=== PATIENT | male | born 1945 | race Caucasian/White ===

== ENCOUNTER 2025-03-18 15:27 | Inpatient (IN) | payer OTHER, MEDICARE, SELFPAY ==
[2025-03-18] VITALS (8 sets, daily range): BP systolic 81–116; BP diastolic 50–64; BMI 22.0; BMI 19.6
[2025-03-18] MEDS: NSS 500 IV (12:29)
[2025-03-18 12:43] LABS: Hematocrit 26.5 % (39.0-52.0); Hemoglobin 9.1 g/dL (13.0-18.0); Mean Corp Hgb Conc. 34.3 g/dL (33.0-37.0); Mean Corpuscular Volume 94.6 fL (80.0-94.0); Nucleated Red Blood Cells % 0 % (-); Platelet Count 116 10^3/uL (130-400); Red Cell Dist. Width 17.8 % (11.5-14.5)
[2025-03-18 13:01] LABS: COVID-19 Antigen Negative (Negative)
[2025-03-18 13:10] LABS: ALT (SGPT) 18 U/L (0-50); AST (SGOT) 18 U/L (17-59); Albumin 3.3 g/dl (3.5-5.0); Alkaline Phosphatase 43 U/L (38-126); Blood Urea Nitrogen 15 mg/dl (9-20); Calcium 9.9 mg/dl (8.4-10.2); Carbon Dioxide 32 mmol/L (22-30); Chloride 97 mmol/L (98-107); Estimated Creatinine Clearance 66 ml/min; Glucose 215 mg/dl (70-99); Magnesium 1.4 mg/dl (1.6-2.3); Potassium 4.3 mmol/L (3.5-5.1); Sodium 132 mmol/L (135-145); Total Protein 5.4 g/dl (6.3-8.2); eGFR > 60.00
[2025-03-18 13:22] LABS: Troponin I < 0.012 ng/ml
[2025-03-18] MEDS: ZOSYN 50 IV (14:42)
--- NOTE | 2025-03-18 14:50 | ED.GENMED ---
History of Present Illness
General
Chief Complaint: Breathing Problem
Source: patient and spouse
Time Seen by Provider: 03/18/25 12:05
History of Present Illness
History of Present Illness:
Note:
CHIEF COMPLAINT(S)
Chest pain and cough.
HISTORY OF PRESENT ILLNESS
The patient is an 79-year-old male with a history of multiple myeloma and chronic obstructive pulmonary disease (COPD) who presents with worsening chest pain and cough. The patient states that the symptoms have been present since January 06 and have
progressively worsened over the past three weeks. The chest pain is deep and affects both the left and right sides, worsening with deep breaths and coughing. The cough is occasionally productive, but not consistently. The patient denies fever at the
time of the visit but reported a low-grade fever earlier, attributing it to wearing a hoodie. The patient is concerned about potential RSV or pneumonia.
The patient is on home oxygen at two liters per minute due to COPD. Recent blood pressure is lower than usual, attributed to dehydration. The patient has a history of a stroke five years ago and is on anticoagulation therapy. He also has concerns
related to potential microfractures due to multiple myeloma, as suggested by an oncologist in the past.
PAST MEDICAL AND SURGICAL HISTORY
- Multiple myeloma: Underwent CAR-T cell therapy in September and is currently in complete remission. 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
- Chronic obstructive pulmonary disease (COPD).
- History of stroke five years ago, with complete recovery.
- History of various treatment protocols for multiple myeloma before CAR-T therapy.
EXTERNAL RECORDS REVIEWED
The patient mentioned recent hospitalization in [place], where multiple tests were run due to his symptoms. Obtaining old records from this facility has been suggested for further comparison.
CHRONIC MEDICAL CONDITIONS SIGNIFICANTLY AFFECTING CARE
- Multiple myeloma.
- Chronic obstructive pulmonary disease (COPD).
- History of stroke.
ALLERGIES
The patient reports anaphylactic shock to myelogic fibaloxin and hives from pomalidomide.
SOCIAL HISTORY
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
MEDICATIONS
The patient is on anticoagulation therapy, taking 2.5 mg twice daily.
REVIEW OF SYSTEMS
- Cardiovascular: Reports chest pain, worsening over the past three weeks, associated with deep breathing and coughing.
- Respiratory: Reports cough, occasionally productive. Home oxygen use at two liters due to COPD.
- Constitutional: Reports no recent fever but had a low-grade one earlier.
PHYSICAL EXAM
General: Alert, no acute distress.
Cardiovascular: Heart, regular and tachycardic. Blood pressure recorded as low, systolic in the 80s.
Respiratory: Lungs with good air movement with scattered occasional crackles.
Gastrointestinal : Abdomen soft, no distension.
Musculoskeletal: No lower extremity edema noted.
PROBLEM LIST
Acute Problems:
- Chest pain
- Cough
- Low blood pressure
Chronic Problems:
- Multiple myeloma
- Chronic obstructive pulmonary disease (COPD)
- History of stroke
PLAN
1. Perform a chest X-ray to assess for pneumonia, lung collapse, or pulmonary embolism.
2. Consider a CT scan of the chest if X-ray is inconclusive.
3. Administer fluids for dehydration to address low blood pressure.
4. Evaluate cardiac and respiratory function closely due to vital sign instability.
5. Consider hospital admission for observation and management overnight due to low systolic blood pressure and tachycardia.
6. Obtain previous medical records from the recent hospitalization for comparison.
DIFFERENTIAL DIAGNOSIS
The Differential Diagnosis includes, in no particular order and is not limited to:
1. Pneumonia
2. Respiratory syncytial virus (RSV) infection
3. Pulmonary embolism
4. Pleural effusion
5. Chronic obstructive pulmonary disease exacerbation
6. Heart failure
7. Lung malignancy or metastasis
8. Atypical chest pain related to multiple myeloma or treatment
9. Costochondritis
10. Dehydration-related hypotension
EKG
My independent EKG interpretation is:
- Rhythm: Sinus tachycardia
- Heart rate: 113 bpm
- Jones: Normal
- Intervals: Normal
- Notable abnormalities: Poor R-wave progression
- Additional findings: No acute changes
Disposition:
SUMMARY OF ENCOUNTER
The patient is an 79-year-old male with a history of chronic obstructive pulmonary disease (COPD) and multiple myeloma, presenting with worsening chest pain and cough. Laboratory evaluations show leukopenia with a WBC count of 3.5, hemoglobin at
9.1, and platelets at 116, indicating pancytopenia. The blood glucose level is elevated at 215 mg/dL. A chest x-ray suggests pneumonia in the right lung, while a CT scan of the chest has been ordered to rule out pulmonary embolism. The patient�s
troponin levels are negative, and creatinine is normal. Management in the ED includes normalization of blood pressure and heart rate, IV fluids for hydration, and withholding vancomycin due to allergies. The patient reports feeling better upon
reassessment.
ASSESSMENT
- Suspected pneumonia
- Pancytopenia
- Hyperglycemia
- Chronic obstructive pulmonary disease exacerbation
PLAN
A CT scan of the chest is pending to further evaluate the condition and rule out pulmonary embolism. IV fluids are being administered for dehydration.
INDEPENDENT REVIEW OF LABS AND INTERPRETATION OF TESTS
My independent review of CBC is leukopenia with WBC 3.5, hemoglobin at 9.1, and platelets at 116 indicating pancytopenia.
My independent review of blood glucose indicates an elevated level at 215 mg/dL.
My independent review of chemistries shows normal creatinine levels and negative troponin.
My independent chest x-ray interpretation indicates suspicion for pneumonia with opacities in the right lung.
MEDICATION RECONCILIATION
Patient on anticoagulation therapy at home with 2.5 mg of apixaban (Eliquis) twice daily.
Vancomycin was withheld due to allergy considerations.
MEDICAL DECISION MAKING
Chronic conditions affecting care: Multiple myeloma, chronic obstructive pulmonary disease (COPD), history of stroke.
- Data:
Category 1
My independent interpretation of the chest x-ray shows suspicion for pneumonia with opacities in the right lung. A CT scan of the chest was ordered and is pending to rule out pulmonary embolism.
-Risk:
Prescription medication management includes the use of apixaban (Eliquis), which requires monitoring for bleeding risks due to anticoagulation therapy.
DIAGNOSIS
- Pneumonia, suspected (ICD-10: J18.9)
- Pancytopenia (ICD-10: D61.9)
- Chronic obstructive pulmonary disease, exacerbation (ICD-10: J44.1)
- Hyperglycemia (ICD-10: R73.9)
- Sepsis
Past History
Past History
ED Past Medical History: Cancer (lymph node biopsy and lymphoma diagnosis in 2003, multiple myeloma, bladder cancer 2013, stem cell transplant 2015), CVA (stroke in 2017), Other (emphysema) and Other (BPH)
ED Past Surgical History: Orthopedic (Right knee meniscus repair 2003, femoral fracture 2013, ) and Other ( bilateral cataract extraction 2013)
Social History
Tobacco: Former smoker (in 1999 quit)
Alcohol: None
Drug: None
Personal:
Living: with family
Employment: Employed
Family History
Family History: Other (reviewed and noncontributory)
Phy Exam
Physical Exam
Physical Exam:
.
Scores
Heart Failure Risk
Heart Failure Risk Score: Not Applicable
Sepsis
Sepsis Screening
Sepsis Assessment: Severe Sepsis
Sepsis Screening: Hypotension
Sepsis Screen
Sepsis Screen: Severe Sepsis
Date: 03/18/25
Time: 15:22
Course
Orders/Labs/Results
Orders:
Orders
03/18/25 11:50
ECG [Electrocardiogram (*1)] Urgent
Reason for Study: Chest Pain
EKG- Treatment ONCE
03/18/25 12:15
0.9% Sodium Chloride 500 ml [Nss] 500 ml IV BOLUS
03/18/25 12:16
Cardiac Monitoring- Treatment ONCE
CR Chest - 2 Views Urgent
Comment:
Reason For Exam: sob
03/18/25 12:25
COVID-19 Antigen Urgent
Source: Nasal Swab
Complete Blood Count/With Diff Urgent
Comprehensive Metabolic Panel Urgent
Lactic Acid Q4H
Comment: CANCEL 2nd LACTIC ACID IF 1st LACTIC ACID IS LESS THAN 2
Magnesium Urgent
Troponin I Urgent
Blood Culture Q30M
ABIGAIL Source: Blood/Venous
Specimen Description:
Blood Culture Q30M
ABIGAIL Source: Blood/Venous
Specimen Description:
Bordetella PCR Urgent
ABIGAIL Source: Nasalpharynx
Specimen Description:
03/18/25 13:28
CT Chest PE Study Urgent
Comment:
Reason For Exam: hypotension, tachycardia
Piperacillin/Tazo 3.375 Gram [Zosyn] 3.375 gram in 50 ml IV NOW
03/18/25 14:50
0.9% Sodium Chloride 1000 ml [Nss] 1,000 ml IV BOLUS
03/18/25 15:10
Admit/Transfer Patient As Directed
Co-Sign Provider:
Level of Care: Inpatient admission
Assign to:: IMU- Intermediate Care
Physician / Group: Dinah
Diagnosis: sepsis due to PNA
Reason for Hospitalization: sepsis due to PNA
Expected length of stay greater than two midnights?: Yes
ELOS- Estimated Length of Stay in days: 4
I certify the patient meets the requirements for IP care: Yes
PRN Pain Medication Management As Directed
May give lesser potent ordered pain med per pt: Yes
preference::
Protocol:: Medication orders for pain may be administered in a
manner that supports deferring to patient preference
when the pt is:
- Requesting an ordered lesser potent pain medication.
Least to most potent pain medications are defined
as: acetaminophen < NSAID < tramadol < opioids
(morphine, oxycodone, hydromorphone).
- Requesting a lesser dose of the same medication IF
ORDERED.
- Requesting a less intrusive route of administration
if both routes are prescribed by the provider (PO <
IV).
03/18/25 15:11
0.9% Sodium Chloride 250 ml [Nss] 250 ml IV BOLUS
03/18/25 15:12
Code Status As Directed
Resuscitation Status: Full Code
03/18/25 16:30
Lactic Acid Q4H
Comment: CANCEL 2nd LACTIC ACID IF 1st LACTIC ACID IS LESS THAN 2
Abnormal Lab Results
03/18/25
12:25
WBC 3.5 L 10^3/uL
(4.8-10.8)
RBC 2.80 L 10^6/uL
(4.70-6.10)
Hgb 9.1 L g/dL
(13.0-18.0)
Hct 26.5 L %
(39.0-52.0)
MCV 94.6 H fL
(80.0-94.0)
MCH 32.5 H pg
(27.0-31.0)
RDW 17.8 H %
(11.5-14.5)
Plt Count 116 L 10^3/uL
(130-400)
Abs Immat Gran (auto) 0.1 H 10^3/uL
(0-0.05)
Absolute Lymphs (auto) 0.6 L 10^3/uL
(1.2-3.4)
Immature Gran % 1.4 H %
(0-0.5)
Lymphocytes % 16.0 L %
(20.5-51.1)
Sodium 132 L mmol/L
(135-145)
Chloride 97 L mmol/L
(98-107)
Carbon Dioxide 32 H mmol/L
(22-30)
Glucose 215 H mg/dl
(70-99)
Magnesium 1.4 L mg/dl
(1.6-2.3)
Total Protein 5.4 L g/dl
(6.3-8.2)
Albumin 3.3 L g/dl
(3.5-5.0)
03/18/25 12:25
03/18/25 12:25
Vital Signs
Initial and Last Documented VS:
Initial Vital Signs
Temp Pulse Resp Pulse Ox
97.6 F 124 20 90
03/18/25 11:58 03/18/25 11:58 03/18/25 11:58 03/18/25 11:58
Last Documented Vital Signs
Temp Pulse Resp BP Pulse Ox
97.6 F 97 18 93/60 98
03/18/25 11:58 03/18/25 14:43 03/18/25 14:43 03/18/25 14:43 03/18/25 14:53
*Pulse Oximetry
SaO2: 98
Nasal Cannula flow liters per minute: 2
Oxygen Mode of Delivery: Room air
Patient hypoxic: yes
*Magazine Feeder Interpretation
Rate: tachycardiac
Interpretation: abnormal
Rhythm: sinus
*Critical Care Note
Total Time (30-74mins, 75-104mins- exclusive of procedures): 30 minutes
ED Attending Note
-
Portions of this chart may have been created with voice recognition software.� Occasional wrong word or��sound alike� substitutions may have occurred due to the inherent limitations of voice recognition software.
Discharge Plan
Departure
Patient Disposition: Admit
Date of Disposition: 03/18/25
Time of Disposition: 14:55
Admit to: Telemetry
Presentation/result/management discussed w/ accepting MD/DO: Hospitalist
Discharge Problem:
Pneumonia, Sepsis, COPD (chronic obstructive pulmonary disease), Pancytopenia
Prescriptions:
No Action
atorvastatin 80 MG tablet
80 mg PO HS
acyclovir [Zovirax] 400 MG tablet
400 mg PO DAILY
carvedilol 3.125 MG tablet
3.125 mg PO HS
tamsulosin 0.4 MG capsule
0.4 mg PO HS
levothyroxine 50 MCG tablet
50 mcg PO DAILY
gabapentin 300 MG capsule
300 mg PO HS
omeprazole 20 MG capsule,delayed release(DR/EC)
20 mg PO DAILY
metformin 500 MG tablet extended release 24 hr
500 mg PO BID
cholecalciferol (vitamin D3) 1,000 UNITS tablet
1,000 units PO DAILY
multivitamin with folic acid [Tab-A-Kiarra] 1 TABLET tablet
1 tab PO DAILY
apixaban [Eliquis] 5 MG tablet
5 mg PO BID
pomalidomide [Pomalyst] 4 MG capsule
4 mg PO . DIRECTED
Patient Comments:
21 days on, 7 days off
umeclidinium-vilanterol [Anoro Ellipta] 1 EACH blister with device
1 puff inhalation R DAILY
Referrals:
Garrick Kline DO [Family Provider, Internal Medicine]
Interventions
Interventions:
*Risk Screen - Suicide Last Done: 03/18/25 11:58
*General Assessment Last Done: 03/18/25 12:15
*Neglect/Abuse Screening Last Done: 03/18/25 11:58
*ED- Fall Risk Assessment Last Done: 03/18/25 12:16
*ED COVID-19 Vaccine History Last Done: 03/18/25 12:16
ED- Cardiac Assessment Last Done: 03/18/25 12:18
ED- Pulmonary Assessment Last Done: 03/18/25 12:18
Discharge Date and Time
Print Language: ROMANSH
[2025-03-18] MEDS: NSS 1000 IV ×2 (14:54→17:51)
[2025-03-18] MEDS: NSS 250 IV (15:23)
--- NOTE | 2025-03-18 15:33 | W.PN.UPDATE ---
Update Note
Progress Note Update
I personally performed a history and physical exam of the patient and discussed management with the resident. I reviewed the resident's note and agree with the documented findings and plan of care HPI/CC.
79-year-old male presents with chief complaints of chest pain and cough, noting the symptoms have been persistent since around January 06.
93/60, 97, 18, 97.6 F, 98% on 2L NC O2
Gen: NAD, AAOx3, appears chronically ill malnourished.
Eyes: EOMI, PERRLA, no scleral icterus.
Neck: supple.
CV: RRR, +S1/S2, no m/r/g.
Resp: Rales and decreased breath sounds in the right base and midlung field
Abd: +BS, soft, NT, ND
Skin: No rashes.
Neuro: CN 2-12 intact, non-focal.
Psych: Normal mood and affect.
Lab Results
03/18/25
12:25
WBC 3.5 L
RBC 2.80 L
Hgb 9.1 L
Hct 26.5 L
MCV 94.6 H
MCH 32.5 H
MCHC 34.3
RDW 17.8 H
Plt Count 116 L
MPV 9.9
Abs Immat Gran (auto) 0.1 H
Absolute Neuts (auto) 2.6
Absolute Lymphs (auto) 0.6 L
Absolute Monos (auto) 0.3
Absolute Eos (auto) 0.0
Absolute Basos (auto) 0.0
Immature Gran % 1.4 H
Neutrophils % 73.4
Lymphocytes % 16.0 L
Monocytes % 8.0
Eosinophils % 0.9
Basophils % 0.3
Nucleated RBC % 0
Sodium 132 L
Potassium 4.3
Chloride 97 L
Carbon Dioxide 32 H
BUN 15
Creatinine 0.7
Estimated Creat Clear 66
eGFR > 60.00
Glucose 215 H
Lactic Acid 1.6
Calcium 9.9
Magnesium 1.4 L
Total Bilirubin 1.0
AST 18
ALT 18
Alkaline Phosphatase 43
Troponin I < 0.012
Total Protein 5.4 L
Albumin 3.3 L
SARS-CoV-2 Antigen Negative
03/18/25 12:25 Nasalpharynx Bordetella pertussis DNA (PCR) - Final
Not Detected
03/18/25 12:25 Nasalpharynx Bordetella paraper/bronchiseptica - Final
Not Detected
03/18/25 12:25 Nasalpharynx Bordetella holmesii - Final
Not Detected
CT chest:
1. No evidence of pulmonary embolism.
2. Extensive apical predominant emphysematous changes. There are numerous opacities within the right upper lobe which extends slightly into the superior right lower lobe. There is a 2.5 x 2.0 cm more nodular opacity in the medial right upper lobe.
Findings may represent pneumonia although follow-up is recommended for evaluation of possible malignancy. Additionally there is an 8 mm solid nodule within the apical left upper lobe for which short interval follow-up CT chest or possible head is
recommended for further evaluation.
3. Extensive compression deformities throughout the visualized thoracolumbar spine with diffuse osteopenia.
4. There is a likely lytic lesion within the right aspect of the T10 vertebral body. Differential includes multiple myeloma and osseous metastasis.
Sepsis, POA, due to R-sided PNA:
-CT chest images reviewed by myself, treat as PNA at this moment (despite subacute onset)
-sepsis, POA, a/e/b tachypnea, tachycardia, WBC 3.5, source PNA
-Immunocompromise state with history of multiple myeloma s/p CAR T-cell therapy September 2024
-COVID NEG
-Zosyn given in ER, continue
-with anaphylaxis to vancomycin, will give Zyvox at this time
-follow BCxs
-s/p 30cc/kg bolus in ER
-states SBP usually on the lower end, 100-110s, also states recent EF 50%
-cont maintenance IVFs
-c/s pulm, discussed with Dr. Muñoz
Other problems:
Pancytopenia
Chronic hypoxemic respiratory failure due to COPD: not in acute exac, currently on 2L NC O2 (baseline)
h/o CVA on Eliquis [employer] (as per pt 2.5mg BID)
Hyponatremia, mild
Multiple myeloma s/p CAR T-cell therapy September 2024
Hypothyroidism: Continue Levoxyl
Prediabetic, hold Metformin for now
--- NOTE | 2025-03-18 16:21 | HPS.HSE ---
Family Physician
-
Family Physician: Garrick Kline
Chief Complaint
-
Cough, worsening chest pain
History of Present Illness
79-year-old male with past medical history significant for bladder cancer, multiple myeloma, CVA for which he is on eliquis, COPD on 2 L of oxygen at home presents to the hospital for cough and worsening chest pain. On January 02, 2025 the patient
underwent bladder cancer surgical resection patient at [facility]. After being discharged home, patient had significant urinary retention due to clots and patient was readmitted at [facility] and transferred to [facility] for
further care. He stated that he developed a slight cough there however it was not worked up significantly. When he was discharged, he followed up with his manhole builder who started him on an antihistamine. The cough progressively got worse.
Patient stated that 2 to 3 weeks ago he went to [facility] for further workup which included a chest x-ray and chest CT which did not reveal any significant findings. The cough and chest pain continued. Last night, the patient had
difficulty falling asleep due to cough and chest pain. He woke up late in the afternoon which is abnormal for him and convinced him to come to the ER. He endorses a runny nose, mild nausea and significant diarrhea 2 days ago for which he took
Imodium after which it resolved. He has also had a 10 pound weight loss in the past few months. He denies any fevers, chills, sore throat, vomiting, hematochezia, melena or focal weakness. He does endorse occasional blood in his urine and urinary
incontinence. He was told by his doctor that this was apart of his bladder cancer, but he plans to get a cystoscopy in early April for further evaluation.
He sees Dr. Isaac Luther at [facility] and Dr. Silverio Gutierrez at [place] for management of his bladder cancer and multiple myeloma. He recently had CAR-T therapy in 09/27 and states his MM is now in remission. His manhole builder is Dr. Tim Yanes at [place]
[place].
In the ED, His BP was 82/56, HR 124, RR 22, afebrile satting well on his baseline of 2L O2. WBC 3.5, hemoglobin 9.1, sodium 132, creatinine 0.7, lactic acid 1.6 troponins negative EKG showed sinus tachycardia, x-ray revealed right lung opacity
suggestive of pneumonia, chest CT revealed emphysematous changes and opacities in the right upper and lower lobe concerning for infection versus malignancy. Lytic lesions were also noted. Blood cultures were taken, he was provided 30cc/kg of
normal saline and started on Zosyn.
Medical History
Past Medical History
Past Medical History: Reports Other (Per below)
Additional Past Medical History:
Multiple myeloma in remission status post CAR-T therapy 09/27, prior stem cell transplant failure 2015
Bladder cancer 2013, 2024
Lung cancer 1 to 1.5 years ago
CVA
TIA
Lymphoma
Melanoma
COPD
CMP
BPH
Hypothyroidism
Prediabetes
Peripheral neuropathy
GERD
History of vertebral fracture
Prior low EF 45% around 2016 after stem cell transplant - since recovered with normal EF
Past Surgical History: Reports Other (Per below)
Additional Past Surgical History:
Bladder cancer resection 11/2013, 12/2024
Right meniscus repair
Cataracts
Stem cell transplant 04/2016
femoral fracture surgery
Social History
Tobacco: Former Smoker (44-year history 2 to 3 packs/day, quit in 1999)
Alcohol: None
Drug: None
Personal:
Living: With Family
Employment: Employed
Family History
Family History: Other (Mom of pneumonia, sister has Boop (bronchiolitis obliterans organizing pneumonia))
Allergies / Home Medications
Allergies reflects when Allergies were last updated in [employer].
Home Medications with original date entered in [employer]
Allergy/Medication List:
Allergies
Allergy/AdvReac Type Severity Reaction Status Date / Time
vancomycin Allergy Severe Anaphylaxis Verified 03/18/25 11:57
acetaminophen (From Allergy Unknown Verified 03/18/25 11:57
Darvocet-N)
oxycodone Allergy Unknown Verified 03/18/25 11:57
oxycodone HCl (From Percocet) Allergy Unknown Verified 03/18/25 11:57
propoxyphene napsylate (From Allergy Unknown Verified 03/18/25 11:57
Darvocet-N)
Home Medications
cholecalciferol (vitamin D3) 25 mcg (1,000 unit) tablet 1,000 units PO DAILY Supplement 08/28/21
gabapentin 300 mg capsule 300 mg PO HS Neurological Condition 08/28/21
levothyroxine 50 mcg tablet 50 mcg PO DAILY Thyroid 08/28/21
metformin 500 mg tablet,extended release 24 hr 500 mg PO BID Diabetes 08/28/21
multivitamin with folic acid 400 mcg tablet (Tab-A-Kiarra) 1 tab PO DAILY Supplement 08/28/21
omeprazole 20 mg capsule,delayed release 20 mg PO DAILY Gastrointestinal issue 08/28/21
tamsulosin 0.4 mg capsule 0.4 mg PO HS Urinary issue 08/28/21
Medical Marijuana 2 ml PO HS 03/18/25
acetaminophen 325 mg tablet (Tylenol) 650 mg PO Q6HPRN PRN mild pain 03/18/25
acyclovir 400 mg tablet 400 mg PO DAILY 03/18/25
apixaban 2.5 mg tablet (Eliquis) 2.5 mg PO BID 03/18/25
atorvastatin 20 mg tablet (Lipitor) 20 mg PO QPM 03/18/25
finasteride 5 mg tablet 5 mg PO DAILY 03/18/25
fluticasone fur. 200 mcg-umeclid 62.5 mcg-vilant 25 mcg inhalat.powder (Trelegy Ellipta) 1 inh inhalation R DAILY 03/18/25
maribavir 200 mg tablet (Livtencity) 400 mg PO BID 03/18/25
prednisone 5 mg tablet 5 mg PO DAILY 03/18/25
sertraline 25 mg tablet 25 mg PO DAILY 03/18/25
Review of Systems
-
History Source: Patient
EENT: Reports Runny Nose
Respiratory: Reports Cough and Trouble Breathing
Cardiac: Reports Other (Pleurisy)
Abdomen/GI: Reports Nausea
: Reports Incontinence and Bleeding
Neurological: Reports No Symptoms
Psych: Reports Calm
Physical Exam
Vital Signs
Vital Signs
Temp Pulse Resp BP Pulse Ox
97.6 F 87 17 91/60 99
03/18/25 11:58 03/18/25 15:45 03/18/25 15:45 03/18/25 15:00 03/18/25 15:45
Physical Exam
General: Comfortable and Appears Chronically Ill
HEENT: NormoCephalic
Respiratory: Crackles (Crackles in right lower and middle lung sena)
Cardiac: S1/S2 and Regular Rhythm
GI: Soft, Non Tender, Non Distended and Normal Bowel Sounds
Musculoskeletal: No Cyanosis and No Edema
Skin: Warm and Dry
Neuro: AO x 3
Psych: Calm
Laboratory Results
-
03/18/25 12:25
03/18/25 12:25
Laboratory Results
Lactic Acid 1.6 mmol/L (0.7-2.0) 03/18/25 12:25
Total Bilirubin 1.0 mg/dl (0.2-1.3) 03/18/25 12:25
AST 18 U/L (17-59) 03/18/25 12:25
ALT 18 U/L (0-50) 03/18/25 12:25
Alkaline Phosphatase 43 U/L (38-126) 03/18/25 12:25
Troponin I < 0.012 ng/ml 03/18/25 12:25
Impression/Plan
-
IMPRESSION:
This is an 79-year-old male with significant past medical history of bladder cancer, multiple myeloma, COPD on 2 L of oxygen, CVA on Eliquis presenting to the hospital for cough and worsening chest pain found to have sepsis secondary to pneumonia.
Imaging:
Chest x-ray 03/18/2025:
There are opacities throughout the right lung, most pronounced in the right upper lung which are suspicious for pneumonia. Recommend follow-up to ensure resolution.
Osteopenia with numerous compression deformities throughout the thoracolumbar spine with associated increased thoracic kyphosis.
Chest CT 03/18/2025:
1. No evidence of pulmonary embolism.
2. Extensive apical predominant emphysematous changes. There are numerous opacities within the right upper lobe which extends slightly into the superior right lower lobe. There is a 2.5 x 2.0 cm more nodular opacity in the medial right upper lobe.
Findings may represent pneumonia although follow-up is recommended for evaluation of possible malignancy. Additionally there is an 8 mm solid nodule within the apical left upper lobe for which short interval follow-up CT chest or possible head is
recommended for further evaluation.
3. Extensive compression deformities throughout the visualized thoracolumbar spine with diffuse osteopenia.
4. There is a likely lytic lesion within the right aspect of the T10 vertebral body. Differential includes multiple myeloma and osseous metastasis.
PLAN:
Sepsis secondary to pneumonia
Immunocompromise state
-- Tachycardic 124, increased respiratory rate 22, leukopenia (WBC 3.5), pneumonia on imaging
-- Received 30 cc/kg in the ER, started on Zosyn in ED, addition of linezolid (anaphylactic reaction to vancomycin)
-- COVID-negative, trop (-)
-- Blood cultures x 2 pending, UA pending
-- Continue maintenance fluids
-- Admit to IMU due to low BP on presentation and close monitoring considering immunocompromised state
-- Appreciate pulmonary considering his significant COPD history and CT findings
-- Request records from [facility] regarding last ED visit
Immunocompromise state with history of multiple myeloma status post CAR-T cell therapy September 2024
CMV
Bladder cancer
-- Continue acyclovir, maribavir, prednisone
Hypomagnesemia
-- Replete
Hyponatremia
-- Mild
-- Monitor
Chest pain
-- Pain description consistent with pleurisy, EKG sinus tach, trop (-)
#Numerous opacities in the lung noted on CT concerning for pneumonia versus malignancy -appreciate pulmonology, repeat CT outpatient
#Pancytopenia - in setting of chemo and cancer
#CVA -states he is on Eliquis 2.5 twice daily for prior stroke
#COPD baseline 2L O2 at home - continue trelegy
#BPH - continue finasteride and tamsulosin
#Prediabetes - metformin on hold in acute setting
#Hypothyroidism - continue levothyroxine
#Peripheral neuropathy - continue gabapentin
#Prior low EF 45% around 2015 after stem cell transplant - since recovered with normal EF for many years with last echo 1 month EF 50% - Follows with [employer] Dr. Baron Anne
#GERD - continue omeprazole
#Vitamin D deficiency -continue vitamin D
#Former smoker - 44 years, 2-3 packs per day, quite 1999
DVT - Eliquis 2.5 BID
Full Code - he stated 4 months ago he would have been DNR however has recently been diagnosed with pancreatic cancer and he wants to be there to help her if needed.
--- NOTE | 2025-03-18 17:08 | CON.PUL ---
Consultation
Consultation Request
Date/Time Consultation Requested: 03/18/2025 - 1543
Date/Time Consultation Performed: 03/18/2025 - 1630
Requesting Provider: Dr. Nix
Performing Provider: Dr. Muñoz
Reason for Consultation: Abnormal CT Chest/opacity
Medical History
-
Chief Complaint: Chest pain + cough/SOB
History of Present Illness:
79-year-old male with a past medical history of COPD on home oxygen, history of lymphoma, history of bladder cancer (2013+2024) s/p resection, history of ischemic CVA, TIA, history of multiple myeloma (2014) s/p IVIG + CAR-T therapy (09/2024) with
prior stem cell transplant failure (2015), left common carotid artery atherosclerosis, BPH, and peripheral neuropathy who presents with chest pain for 3 weeks. Patient is also had a chronic cough since January after he had bladder cancer surgery with
complications. He says that possibly a roommate was sick but he is not exactly sure. He is on Trelegy for COPD and his pulmonary doctor is through [facility] with Dr. Tim Yanes. Patient says that he was recently diagnosed with lung
cancer about 1-1.5 years ago and he has been treated with radiation therapy. He reports that he gets a CT chest every 3 months and that the lung cancer is stable with no signs of growth. He does use oxygen at home at 2 L/min nasal cannula with
sleep and as needed during the day. Has a POC that he uses on setting #2. He says that his cough has been worsening since it started in January, sometimes has clear phlegm being produced. Denies night sweats. Has a 10 pound weight loss in the last
2 months. Also has been eating/drinking less lately, and has been short of breath for the last few months. In the ER he was afebrile, tachycardic to 124, breathing at 20 breaths/min, hypotensive to 82/56, and saturating 90% on room air.
Saturations improved to 98% on 2 L/min nasal cannula. Initial labs pertinent for leukopenia to 3.5, Hb 9.1, platelet count 116, sodium 132, glucose 215, lactate 1.6, troponin negative at <0.012, and COVID-19 antigen negative. Blood cultures were
collected. Pertussis PCR was checked and was negative. CXR showed opacities in the right lung suspicious for pneumonia. CTA chest obtained showing no evidence of PE with extensive apical predominant emphysematous changes with numerous opacities
in the right upper lobe including a 2.5 x 2 cm nodular opacity in the medial right upper lobe. There is also a lytic lesion in the right aspect of the T10 vertebral body. Pt was given 1.75L NS 0.9% in ER and zosyn. He was admitted to the IMU and
pulmonary service now consulted given abnormal chest CT findings.
When I saw the patient, he was resting in bed on room air, saturating 96% with heart rate 191 and BP 104/64. He continues to feel short of breath mainly with activity, and continues to have cough with occasional phlegm which is clear. He has also
had chest discomfort. He denies RABAGO, abdominal pain, nausea, fevers or chills
PMHx: History of ischemic CVA in treated with Eliquis at the time, Hx of TIA, hypothyroidism, history of vertebral fracture, history of multiple myeloma (2014) s/p IVIG + CAR-T therapy (09/2024) with prior stem cell transplant failure
(2015), history of peripheral neuropathy presumably from multiple myeloma, left common carotid artery atherosclerosis, BPH, history of bladder cancer (2013 + 2024) s/p resection, former tobacco smoker, lymphoma (diagnosed 2003), COPD on home O2
(uses 2L/min with sleep and prn during day)
PSHx: Right knee meniscus repair, femoral fracture surgery, bilateral cataract surgery, bladder cancer resection (11/2013 + 12/2024), stem cell transplant (04/2016)
Past Medical History
Past Medical History: Other (Above as per HPI)
Past Surgical History: Other (Above as per HPI)
Social History
Tobacco: Former Smoker (1-2 PPD x 44 years, quit 07/26/1999)
Alcohol: None
Drug: None
Personal:
Living: With Family
Employment: Employed
Family History
Family History: CAD (Father) and Other (Mother: Pneumonia; Sister: BOOP)
Allergies / Home Medications
Allergies
Allergy/AdvReac Type Severity Reaction Status Date / Time
vancomycin Allergy Severe Anaphylaxis Verified 03/18/25 11:57
acetaminophen (From Allergy Unknown Verified 03/18/25 11:57
Darvocet-N)
oxycodone Allergy Unknown Verified 03/18/25 11:57
oxycodone HCl (From Percocet) Allergy Unknown Verified 03/18/25 11:57
propoxyphene napsylate (From Allergy Unknown Verified 03/18/25 11:57
Darvocet-N)
Home Medications
�Medication �Instructions �Recorded �Confirmed �Last Taken �Type
cholecalciferol (vitamin D3) 25 1,000 units PO DAILY Supplement 08/28/21 03/18/25 03/18/25 History
mcg (1,000 unit) tablet
gabapentin 300 mg capsule 300 mg PO HS Neurological Condition 08/28/21 03/18/25 03/17/25 History
levothyroxine 50 mcg tablet 50 mcg PO DAILY Thyroid 08/28/21 03/18/25 03/18/25 History
metformin 500 mg tablet,extended 500 mg PO BID Diabetes 08/28/21 03/18/25 03/18/25 History
release 24 hr
multivitamin with folic acid 400 1 tab PO DAILY Supplement 08/28/21 03/18/25 03/18/25 History
mcg tablet (Tab-A-Kiarra)
omeprazole 20 mg capsule,delayed 20 mg PO DAILY Gastrointestinal 08/28/21 03/18/25 03/18/25 History
release issue
tamsulosin 0.4 mg capsule 0.4 mg PO HS Urinary issue 08/28/21 03/18/25 03/17/25 History
Medical Marijuana 2 ml PO HS 03/18/25 03/18/25 03/17/25 History
acetaminophen 325 mg tablet 650 mg PO Q6HPRN PRN mild pain 03/18/25 03/18/25 8 Days Ago History
(Tylenol) ~03/10/25
acyclovir 400 mg tablet 400 mg PO DAILY 03/18/25 03/18/25 03/18/25 History
apixaban 2.5 mg tablet (Eliquis) 2.5 mg PO BID 03/18/25 03/18/25 03/18/25 History
atorvastatin 20 mg tablet (Lipitor) 20 mg PO QPM 03/18/25 03/18/25 03/17/25 History
finasteride 5 mg tablet 5 mg PO DAILY 03/18/25 03/18/25 03/18/25 History
fluticasone fur. 200 mcg-umeclid 1 inh inhalation R DAILY 03/18/25 03/18/25 03/18/25 History
62.5 mcg-vilant 25 mcg
inhalat.powder (Trelegy Ellipta)
maribavir 200 mg tablet 400 mg PO BID 03/18/25 03/18/25 03/18/25 History
(Livtencity)
prednisone 5 mg tablet 5 mg PO DAILY 03/18/25 03/18/25 03/18/25 History
sertraline 25 mg tablet 25 mg PO DAILY 03/18/25 03/18/25 03/18/25 History
Review of Systems
-
History Source: Patient
All other systems: Negative unless noted
Vitals / Labs / Diagnostic Testing
Vital Signs
Temp Pulse Resp BP Pulse Ox
98.4 F 97 15 116/64 93
03/18/25 17:11 03/18/25 17:00 03/18/25 17:00 03/18/25 16:00 03/18/25 17:00
Lab Data
03/18/25 12:25
03/18/25 12:25
Microbiology
03/18/25 12:25 Nasalpharynx Bordetella pertussis DNA (PCR) - Final
Not Detected
03/18/25 12:25 Nasalpharynx Bordetella paraper/bronchiseptica - Final
Not Detected
03/18/25 12:25 Nasalpharynx Bordetella holmesii - Final
Not Detected
Diagnostic Testing:
Physical Exam
-
HEENT: Normocephalic and Anicteric
Cardiovascular: S1/S2 and Peripheral Edema (negative)
Respiratory: Wheeze (negative), Rales (Bilaterally), Rhonchi (negative), Non-Labored Respirations and Other (Bronchial breath sounds heard in the right upper lobe)
GI: Soft, Non Distended, Non Tender and Normal Bowel Sounds
Neurology: AO x 3 and Tremors (negative)
Skin: Warm and Dry
General: Respiratory Distress (negative), Comfortable, Fever (negative) and Chills (negative)
Assessment
-
Assessment: 79-year-old male with a past medical history of COPD on home oxygen, history of lymphoma, history of bladder cancer (2013+2024) s/p resection, history of ischemic CVA, TIA, history of multiple myeloma (2014) s/p IVIG + CAR-T therapy
(09/2024) with prior stem cell transplant failure (2015), left common carotid artery atherosclerosis, BPH, and peripheral neuropathy who presents with chest pain for 3 weeks. Patient is also had a chronic cough since January after he had bladder cancer
surgery with complications. He says that possibly a roommate was sick but he is not exactly sure. He is on Trelegy for COPD and his pulmonary doctor is through [facility] with Dr. Tim Yanes. Patient says that he was recently
diagnosed with lung cancer about 1-1.5 years ago and he has been treated with radiation therapy. He reports that he gets a CT chest every 3 months and that the lung cancer is stable with no signs of growth. He does use oxygen at home at 2 L/min
nasal cannula with sleep and as needed during the day. Has a POC that he uses on setting #2. He says that his cough has been worsening since it started in January, sometimes has clear phlegm being produced. Denies night sweats. Has a 10 pound
weight loss in the last 2 months. Also has been eating/drinking less lately, and has been short of breath for the last few months. In the ER he was afebrile, tachycardic to 124, breathing at 20 breaths/min, hypotensive to 82/56, and saturating 90%
on room air. Saturations improved to 98% on 2 L/min nasal cannula. Initial labs pertinent for leukopenia to 3.5, Hb 9.1, platelet count 116, sodium 132, glucose 215, lactate 1.6, troponin negative at <0.012, and COVID-19 antigen negative. Blood
cultures were collected. Pertussis PCR was checked and was negative. CXR showed opacities in the right lung suspicious for pneumonia. CTA chest obtained showing no evidence of PE with extensive apical predominant emphysematous changes with
numerous opacities in the right upper lobe including a 2.5 x 2 cm nodular opacity in the medial right upper lobe. There is also a lytic lesion in the right aspect of the T10 vertebral body. Pt was given 1.75L NS 0.9% in ER and zosyn. He was
admitted to the IMU and pulmonary service now consulted given abnormal chest CT findings.
Chronic conditions [employer]: History of ischemic CVA in treated with Eliquis at the time, Hx of TIA, hypothyroidism, history of vertebral fracture, history of multiple myeloma (2014) s/p IVIG + CAR-T therapy (09/2024) with prior stem cell
transplant failure (2015), history of peripheral neuropathy presumably from multiple myeloma, left common carotid artery atherosclerosis, BPH, history of bladder cancer (2013 + 2024) s/p resection, former tobacco smoker, lymphoma (diagnosed 2003),
COPD on home O2 (uses 2L/min with sleep and prn during day)
Impression:
#Suspected CAP
#Chronic cough (started in January 2025)
#Severe centrilobular/paraseptal emphysema due to COPD
#Chronic hypoxic respiratory failure on 2 L/min
#Pancytopenia
#Hyponatremia likely due to reduce PO intake
#Prediabetes with hyperglycemia
#Hypomagnesemia
#History of multiple myeloma s/p car�T therapy (in September 2024) now in remission, per patient
#History of bladder
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
#Immunocompromised state on chronic prednisone with history of CAR�T-cell therapy in September 2024
Plan:
- Patient has a 2.5 x 2 cm opacity in the right upper lobe, concerning for pneumonia although unable to rule out malignancy
- Recommend to empirically treat for pneumonia with repeat CT chest in approximately 4-6 weeks
- Continue with Zosyn + Zyvox (allergy to vancomycin � anaphylaxis)
- Follow-up infectious workup with blood cultures; check urine antigens for Legionella + strep pneumonia and check sputum culture (if patient can produce a decent sample)
- Patient reports that he has lung cancer diagnosed 1 - 1.5 years ago, gets followed through [facility] with CT Chest every 3 months and was told his cancer is stable
- He is not sure which side of lung his cancer is on --> obtain last office visit note from transmission mechanic, Dr. Tim Yanes
- If right upper lobe opacity has grown, then he may need robotic bronchoscopy at that time for biopsy
- Biopsy is not without risk given his extensive upper lobe predominant centrilobular/paraseptal emphysema, with risk of pneumothorax and prolonged airleak
- Patient is on Trelegy as an outpatient � continue with Symbicort 160 mcg + Spiriva Respimat 2.5 mcg/act while hospitalized, with prn albuterol (not currently bronchospastic)
- Instructed to rinse mouth after using Symbicort
- Continue trending serum sodium
- Given that he is immunocompromised, continue with acyclovir, prednisone and Maribavir
- Maintain SpO2 88-95% with supplemental O2 as needed
- Incentive spirometer encouraged q1hr while awake
- Replete electrolytes with K>4, Mg>2
- Trend H/H and transfuse if needed to keep Hb>7g/dL; keep plt>20k, unless there is concern for bleeding then keep plt>50k
- Maintain euglycemia with goal BG >100 and <180
- DVT ppx: Eliquis
Pulmonary service will continue to follow along. Patient follows with Dr. Tim Yanes at [facility] for his COPD
Data:
CTA Chest 03/18/2025:
1. No evidence of pulmonary embolism.
2. Extensive apical predominant emphysematous changes. There are numerous opacities within the right upper lobe which extends slightly into the superior right lower lobe. There is a 2.5 x 2.0 cm more nodular opacity in the medial right upper lobe.
Findings may represent pneumonia although follow-up is recommended for evaluation of possible malignancy. Additionally there is an 8 mm solid nodule within the apical left upper lobe for which short interval follow-up CT chest or possible head is
recommended for further evaluation.
3. Extensive compression deformities throughout the visualized thoracolumbar spine with diffuse osteopenia.
4. There is a likely lytic lesion within the right aspect of the T10 vertebral body. Differential includes multiple myeloma and osseous metastasis.
Total time spent today was 58 minutes for this encounter. Time includes reviewing laboratory test/imaging results, reviewing pertinent medical records, obtaining and reviewing medical history, performing an appropriate exam, ordering medications,
tests and procedures. Time also includes documentation of this encounter, coordinating patient care and communicating with other healthcare professionals. Total time does not include separately billed tests performed on this date of service.
[2025-03-18] MEDS: ZYVOX 600 MG PO ×2 (17:52→20:29)
[2025-03-18] MEDS: MAGNESIUM SULFATE 100 IV (18:09)
[2025-03-18] MEDS: LIPITOR 20 MG PO (18:24)
--- NOTE | 2025-03-18 19:11 | PTCARENOTE ---
pt informed to bring in livtencity from home. Pt stated that he will update on need to bring in home med since pharmacy does not stock it.
[2025-03-18] MEDS: FLOMAX 0.4 MG PO (20:29)
[2025-03-18] MEDS: ELIQUIS 2.5 MG PO (20:29)
[2025-03-18] MEDS: ZOSYN 100 IV ×2 (20:29→23:32)
[2025-03-18] MEDS: NEURONTIN 300 MG PO (20:29)
[2025-03-19] VITALS (12 sets, daily range): BP systolic 94–113; BP diastolic 61–79; BMI 19.6
[2025-03-19 04:49] LABS: Hematocrit 22.0 % (39.0-52.0); Hemoglobin 7.5 g/dL (13.0-18.0); Mean Corp Hgb Conc. 34.1 g/dL (33.0-37.0); Mean Corpuscular Volume 95.2 fL (80.0-94.0); Nucleated Red Blood Cells % 0 % (-); Red Cell Dist. Width 17.7 % (11.5-14.5)
[2025-03-19 05:03] LABS: ALT (SGPT) 14 U/L (0-50); AST (SGOT) 15 U/L (17-59); Albumin 2.7 g/dl (3.5-5.0); Alkaline Phosphatase 36 U/L (38-126); Blood Urea Nitrogen 10 mg/dl (9-20); Calcium 7.5 mg/dl (8.4-10.2); Carbon Dioxide 29 mmol/L (22-30); Chloride 103 mmol/L (98-107); Estimated Creatinine Clearance 73 ml/min; Glucose 130 mg/dl (70-99); Magnesium 2.2 mg/dl (1.6-2.3); Potassium 3.7 mmol/L (3.5-5.1); Sodium 133 mmol/L (135-145); Total Protein 4.6 g/dl (6.3-8.2); eGFR > 60.00
[2025-03-19] MEDS: NSS 1000 IV ×2 (05:13→14:30)
[2025-03-19] MEDS: SYNTHROID 50 MCG PO (05:13)
[2025-03-19] MEDS: ZOSYN 100 IV ×4 (05:13→23:59)
[2025-03-19 06:05] LABS: Platelet Count 93 10^3/uL (130-400)
[2025-03-19 06:06] LABS: Anisocytosis 1+; Hypochromasia 1+; Normal RBC Morphology No
[2025-03-19 06:07] LABS: Basophilic Stippling Occasional; Ovalocytes 1+; Polychromasia Occasional
[2025-03-19 06:34] LABS: Target Cells Occasional
[2025-03-19 06:35] LABS: Acanthocytes 1+; Tear Drop Red Blood Cells Occasional
--- NOTE | 2025-03-19 07:45 | W.PN.UPDATE ---
Update Note
Progress Note Update
I saw and evaluated the patient. I reviewed the resident�s note and agree with findings and plan as documented in the resident�s note.
Pt c/o cough with associated CP O/N.
Gen: NAD, AAOx3, appears chronically ill and malnourised.
Eyes: EOMI, PERRLA, no scleral icterus.
Neck: supple.
CV: remains RRR, +S1/S2, no m/r/g.
Resp: remains CTAB, no rales, wheezes, or rhonchi.
Abd: +BS, soft, NT, ND
Skin: No rashes.
Neuro: CN 2-12 intact, non-focal.
Psych: Normal mood and affect.
03/18/25 12:25 Nasalpharynx Bordetella pertussis DNA (PCR) - Final
Not Detected
03/18/25 12:25 Nasalpharynx Bordetella paraper/bronchiseptica - Final
Not Detected
03/18/25 12:25 Nasalpharynx Bordetella holmesii - Final
Not Detected
CT chest:
1. No evidence of pulmonary embolism.
2. Extensive apical predominant emphysematous changes. There are numerous opacities within the right upper lobe which extends slightly into the superior right lower lobe. There is a 2.5 x 2.0 cm more nodular opacity in the medial right upper lobe.
Findings may represent pneumonia although follow-up is recommended for evaluation of possible malignancy. Additionally there is an 8 mm solid nodule within the apical left upper lobe for which short interval follow-up CT chest or possible head is
recommended for further evaluation.
3. Extensive compression deformities throughout the visualized thoracolumbar spine with diffuse osteopenia.
4. There is a likely lytic lesion within the right aspect of the T10 vertebral body. Differential includes multiple myeloma and osseous metastasis.
Sepsis, POA, due to R-sided PNA:
-CT chest images reviewed by myself, treat as PNA at this moment (despite subacute onset)
-sepsis, POA, a/e/b tachypnea, tachycardia, WBC 3.5, source PNA
-Immunocompromised state with history of multiple myeloma s/p CAR T-cell therapy September 2024
-h/o lung CA
-COVID NEG
-cont Zosyn/Zyvox
-follow BCxs
-s/p 30cc/kg bolus in ER
-states SBP usually on the lower end, 100-110s, also states recent EF 50%
-cont maintenance IVFs
-pulm following
-continue acyclovir/prednisone/Maribavir
Other problems:
Pancytopenia: Trend. Obtain blood consent.
Chronic hypoxemic respiratory failure due to COPD: not in acute exac, currently on 2L NC O2 (baseline)
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
Hyponatremia, mild
Multiple myeloma s/p CAR T-cell therapy September 2024
Hypothyroidism: Continue Levoxyl
Prediabetic, hold Metformin for now
FULL/Eliquis
--- NOTE | 2025-03-19 08:45 | W.PN.HOSP.TC ---
Today's Communication/Plan
-
Zosyn and linezolid
Blood cultures pending
Repeat H&H and transfuse for Hg <7
Assessment / Plan
Assessment / Plan
IMPRESSION:
This is an 79-year-old male with significant past medical history of bladder cancer, lung cancer, multiple myeloma, COPD on 2 L of oxygen, CVA on Eliquis presenting to the hospital for cough and worsening chest pain found to have sepsis secondary to
pneumonia.
Imaging:
Chest x-ray 03/18/2025:
There are opacities throughout the right lung, most pronounced in the right upper lung which are suspicious for pneumonia. Recommend follow-up to ensure resolution.
Osteopenia with numerous compression deformities throughout the thoracolumbar spine with associated increased thoracic kyphosis.
Chest CT 03/18/2025:
1. No evidence of pulmonary embolism.
2. Extensive apical predominant emphysematous changes. There are numerous opacities within the right upper lobe which extends slightly into the superior right lower lobe. There is a 2.5 x 2.0 cm more nodular opacity in the medial right upper lobe.
Findings may represent pneumonia although follow-up is recommended for evaluation of possible malignancy. Additionally there is an 8 mm solid nodule within the apical left upper lobe for which short interval follow-up CT chest or possible head is
recommended for further evaluation.
3. Extensive compression deformities throughout the visualized thoracolumbar spine with diffuse osteopenia.
4. There is a likely lytic lesion within the right aspect of the T10 vertebral body. Differential includes multiple myeloma and osseous metastasis.
PLAN:
Sepsis secondary to pneumonia
Immunocompromise state
-- Tachycardic 124, increased respiratory rate 22, leukopenia (WBC 3.5), pneumonia on imaging
-- Received 30 cc/kg in the ER, started on Zosyn in ED, addition of linezolid (anaphylactic reaction to vancomycin)
-- COVID-negative, trop (-)
-- Blood cultures x 2 pending, UA, legionella, chlamydia, c.psittaci, c.trachomatis, c. pneumoniae, m. pneumonia pending
-- Continue maintenance fluids
-- IMU
-- Appreciate pulmonary considering his significant COPD history, lung ca hx and CT findings
-- Request records from [facility] regarding last ED visit
Immunocompromise state with history of multiple myeloma status post CAR-T cell therapy September 2024
CMV
Bladder cancer
Lung cancer s/p radiation
-- Continue acyclovir, maribavir, prednisone
-- Consider stress dose steroids if BP drops
Hypomagnesemia
-- Resolved
Hyponatremia
-- Mild - improving
-- Monitor
Chest pain
-- Pain description consistent with pleurisy, EKG sinus tach, trop (-)
#Lung cancer diagnosed 1 to 1.5 years ago s/p radiation therapy - he gets chest CT every 3 months and states it is stable - repeat CT outpatient in 4-6 weeks
#Pancytopenia - in setting of chemo, cancer, dilution- blood consent in chart - no signs of active bleed - transfuse hg <7
#CVA -states he is on Eliquis 2.5 twice daily for prior stroke
#COPD baseline 2L O2 at home - continue trelegy
#BPH - continue finasteride and tamsulosin
#Prediabetes - metformin on hold in acute setting
#Hypothyroidism - continue levothyroxine
#Peripheral neuropathy - continue gabapentin
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 Baron Anne
#GERD - continue omeprazole
#Vitamin D deficiency -continue vitamin D
#Former smoker - 44 years, 2-3 packs per day, quite 1999
DVT - Eliquis 2.5 BID
Full Code - he stated 4 months ago he would have been DNR however has recently been diagnosed with pancreatic cancer and he wants to be there to help her if needed.
Anticipated Discharge: > 48 hours
Subjective/Interval History
-
Date of Service: March 19, 2025
Feeling a bit grumpy overnight. He feels like his cough and chest pain is worse. Chest pain is associated with deep breaths and coughs. He describes it as sharp in the center of his chest. When he goes into a coughing fit it hurts so much he feels
like he needs to hug himself. He states it does not feel like a pressure or an elephant sitting on his chest. He denies any hematemesis, melena or hematochezia.
He misses his bed at home. He realized he forgot to tell me he has a history of lung cancer and apologized because he knew that was important. He stated he know that would be the first thing I asked him about this morning. 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 He is still working despite all of his medical conditions.
Objective Data
-
Labs:
Laboratory Results
03/19/25
04:17
WBC 2.3 L*
Hgb 7.5 L
Hct 22.0 L
Plt Count 93 L
Sodium 133 L
Potassium 3.7
Chloride 103
Carbon Dioxide 29
BUN 10
Creatinine 0.6 L
Glucose 130 H
Calcium 7.5 L D
Total Bilirubin 0.8
AST 15 L
ALT 14
Alkaline Phosphatase 36 L
Vital Signs:
Vital Signs
Temp Pulse Resp BP Pulse Ox
98.3 F 92 20 94/73 96
03/19/25 07:05 03/19/25 06:00 03/19/25 06:00 03/19/25 06:00 03/19/25 06:00
I&O
03/18/25 03/19/25 03/20/25
06:59 06:59 06:59
Output Total 1375 / 1375 400 / 400
Balance -1375 / -1375 -400 / -400
Review of Systems
-
History Source: Patient
EENT: Reports No Symptoms Reported
Respiratory: Reports Cough, Trouble Breathing and Pleurisy
Cardiac: Reports Chest Pain
Abdomen/GI: Reports No Symptoms
Genitourinary: Reports No Symptoms
Skin: Reports No Symptoms
Physical Exam
-
General: Appears Chronically Ill
Respiratory: Crackles (Right lower and middle lung field)
Cardiac: Regular Rhythm and S1/S2
GI: Soft, Nontender, Nondistended and Normal Bowel Sounds
Genito-urinary: Clear Urine
Musculoskeletal: No Edema
Skin: Warm and Dry
Neuro: AO x 3
Psych: Calm
--- NOTE | 2025-03-19 09:40 | CM ---
Patient seen at bedside
IA completed
dx: sepsis,pna
PMH: bladder cancer, multiple myeloma, CVA for which he is on eliquis, COPD on 2 L of oxygen at home
Patient lives with his significant other Elsi, son Hailey & his in 1 story home, 2 URI
PLOF: Independent with walker/cane
DME: Walker, cane, wheelchair, shower chair, home oxygen ([employer])
Has had [facility] in past, [facility] in past
patient requested information on assisted living facilities-stated he worked with someone from [facility]
CM also gave patient resources
PCP: Garrick Kline
Pharmacy: [address], [place]
PLAN: TBD, follow hospital progress, CM to follow for needs
[2025-03-19] MEDS: ZOVIRAX 400 MG PO (09:41)
[2025-03-19] MEDS: PROTONIX 20 MG PO (09:41)
[2025-03-19] MEDS: PROSCAR 5 MG PO (09:42)
[2025-03-19] MEDS: ZYVOX 600 MG PO ×2 (09:42→20:51)
[2025-03-19] MEDS: DELTASONE 5 MG PO (09:42)
[2025-03-19] MEDS: ELIQUIS 2.5 MG PO ×2 (09:42→20:50)
[2025-03-19] MEDS: ZOLOFT 25 MG PO (09:43)
--- NOTE | 2025-03-19 14:52 | PTCARENOTE ---
maribavir sent to pharmacy to be added to med list.
--- NOTE | 2025-03-19 16:30 | W.PN.PUL3 ---
Addendum entered and electronically signed by Miguel Muñoz MD 03/20/25 10:03:
Patient seen and evaluated on 03/19/2025
Original Note:
Today's Communication / Plan
-
Known RUL NSCLC with stable posttreatment changes
Advised him to follow up with his ore buyer, Dr. Yanes at [facility] and bring records here with him
Raise steroids to treat COPD exacerbation
Continue Symbicort + Spiriva - if SOB worsens then would transition to nebs
PT/OT
Stable for TRX out of IMU to tele
Pulmnary service will continue to follow along
Assessment
-
Assessment: 79-year-old male with a past medical history of COPD on home oxygen, history of lymphoma, history of bladder cancer (2013+2024) s/p resection, history of ischemic CVA, TIA, history of multiple myeloma (2014) s/p IVIG + CAR-T therapy
(09/2024) with prior stem cell transplant failure (2015), left common carotid artery atherosclerosis, BPH, and peripheral neuropathy who presents with chest pain for 3 weeks. Patient is also had a chronic cough since January after he had bladder cancer
surgery with complications. He says that possibly a roommate was sick but he is not exactly sure. He is on Trelegy for COPD and his pulmonary doctor is through [facility] with Dr. Tim Yanes. Patient says that he was recently
diagnosed with lung cancer about 1-1.5 years ago and he has been treated with radiation therapy. He reports that he gets a CT chest every 3 months and that the lung cancer is stable with no signs of growth. He does use oxygen at home at 2 L/min
nasal cannula with sleep and as needed during the day. Has a POC that he uses on setting #2. He says that his cough has been worsening since it started in January, sometimes has clear phlegm being produced. Denies night sweats. Has a 10 pound
weight loss in the last 2 months. Also has been eating/drinking less lately, and has been short of breath for the last few months. In the ER he was afebrile, tachycardic to 124, breathing at 20 breaths/min, hypotensive to 82/56, and saturating 90%
on room air. Saturations improved to 98% on 2 L/min nasal cannula. Initial labs pertinent for leukopenia to 3.5, Hb 9.1, platelet count 116, sodium 132, glucose 215, lactate 1.6, troponin negative at <0.012, and COVID-19 antigen negative. Blood
cultures were collected. Pertussis PCR was checked and was negative. CXR showed opacities in the right lung suspicious for pneumonia. CTA chest obtained showing no evidence of PE with extensive apical predominant emphysematous changes with
numerous opacities in the right upper lobe including a 2.5 x 2 cm nodular opacity in the medial right upper lobe. There is also a lytic lesion in the right aspect of the T10 vertebral body. Pt was given 1.75L NS 0.9% in ER and zosyn. He was
admitted to the IMU and pulmonary service now consulted given abnormal chest CT findings.
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
transplant failure (2015), history of peripheral neuropathy presumably from multiple myeloma, left common carotid artery atherosclerosis, BPH, history of bladder cancer (2013 + 2024) s/p resection, former tobacco smoker, lymphoma (diagnosed 2003),
COPD on home O2 (uses 2L/min with sleep and prn during day)
Impression:
#Suspected CAP
#Right apical lung cancer s/p XRT - monitored at [facility] - most recent CT Chest 01/17/2025 at [facility] showed stable right apical posttreatment changes
#Chronic cough (started in January 2025)
#Severe centrilobular/paraseptal emphysema due to COPD with acute exacerbation
#Chronic hypoxic respiratory failure on 2 L/min
#Pancytopenia
#Hyponatremia likely due to reduce PO intake
#Prediabetes with hyperglycemia
#Hypomagnesemia
#History of multiple myeloma s/p car�T therapy (in September 2024) now in remission, per patient
#History of bladder
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
#Immunocompromised state on chronic prednisone with history of CAR�T-cell therapy in September 2024
Plan:
- Patient has a 2.5 x 2 cm opacity in the right upper lobe, concerning for pneumonia although unable to rule out malignancy
- Patient has Hx of right apical NSCLC diagnosed 1 - 1.5 years ago (per patient), gets followed through [facility] with CT Chest every 3 months and was told his cancer is stable
- Most recent CT Chest 01/17/2025 at [facility] showed stable right apical pleural thickening/subpleural peribronchial vascular scarlike nodular opacities and volume loss, likely posttreatment changes, obscuring underlying treated region; this was
compared to previous CT Chest on 09/26/2024
- Also has chronic diffuse small airway inflammation with scattered mucoid impaction in distal small airways with small airways disease
- Recommend to empirically treat for pneumonia with repeat CT chest in approximately 4-6 weeks
- Continue with Zosyn + Zyvox (allergy to vancomycin � anaphylaxis)
- Follow-up infectious workup with blood cultures; check urine antigens for Legionella + strep pneumonia and check sputum culture (if patient can produce a decent sample)
- Follow up atypical pneumonia panel (chlamydia serology + Mycoplasma pneumoniae serology)
- Obtain last office visit note from ore buyer, Dr. Tim Yanes
- Advised him to follow up with his pulmonary team at [facility], and he should have our records transferred to them for their review
- Patient is on Trelegy as an outpatient � continue with Symbicort 160 mcg + Spiriva Respimat 2.5 mcg/act while hospitalized, with prn albuterol (not currently bronchospastic)
- Instructed to rinse mouth after using Symbicort
- Given that he continues to feel SOB, will raise steroids to solumedrol 40mg IV q12hr
- Continue trending serum sodium; continue NS 0.9%
- Given that he is immunocompromised, continue with acyclovir, prednisone and Maribavir
- Maintain SpO2 88-95% with supplemental O2 and wean down as tolerated; he is on chronic oxygen, usually as needed
- Incentive spirometer encouraged q1hr while awake
- Replete electrolytes with K>4, Mg>2
- Trend H/H and transfuse if needed to keep Hb>7g/dL; keep plt>20k, unless there is concern for bleeding then keep plt>50k
- Maintain euglycemia with goal BG >100 and <180
- DVT ppx: Eliquis
Stable for transfer out of IMU to telemetry.
Pulmonary service will continue to follow along. Patient follows with Dr. Tim Yanes at [facility] for his COPD
Data:
CTA Chest 03/18/2025:
1. No evidence of pulmonary embolism.
2. Extensive apical predominant emphysematous changes. There are numerous opacities within the right upper lobe which extends slightly into the superior right lower lobe. There is a 2.5 x 2.0 cm more nodular opacity in the medial right upper lobe.
Findings may represent pneumonia although follow-up is recommended for evaluation of possible malignancy. Additionally there is an 8 mm solid nodule within the apical left upper lobe for which short interval follow-up CT chest or possible head is
recommended for further evaluation.
3. Extensive compression deformities throughout the visualized thoracolumbar spine with diffuse osteopenia.
4. There is a likely lytic lesion within the right aspect of the T10 vertebral body. Differential includes multiple myeloma and osseous metastasis.
Total time spent today was 36 minutes for this encounter. Time includes reviewing laboratory test/imaging results, reviewing pertinent medical records, obtaining and reviewing medical history, performing an appropriate exam, ordering medications,
tests and procedures. Time also includes documentation of this encounter, coordinating patient care and communicating with other healthcare professionals. Total time does not include separately billed tests performed on this date of service.
Subjective Data
-
Date of Service:
Date of Service: March 19, 2025
Chief Complaint: Pulmonary Follow Up
Subjective:
Patient seen and evaluated today at bedside. Afebrile overnight. He continues to have a wet-sounding cough, which is bothersome. He is eager to go home. Currently on 2L/min. He had chest discomfort overnight + SOB, and did not sleep well. He
also feels very weak when he walks around the room. Denies chest pain now.
Review of Systems
General: Other (negative unless mentioned above)
Objective Data
Data Reviewed
Vital Signs / I&O / Oxygen:
Vital Signs
Temp Pulse Resp BP Pulse Ox
98.3 F 92 20 94/73 96
03/19/25 07:05 03/19/25 06:00 03/19/25 06:00 03/19/25 06:00 03/19/25 06:00
Intake and Output
03/18/25 03/19/25 03/20/25
06:59 06:59 06:59
Output Total 1375 / 1375 400 / 400
Balance -1375 / -1375 -400 / -400
SaO2 96
Nasal Cannula flow liters per 2
minute
Physical Exam
General: Respiratory Distress (negative), Comfortable and Chills (negative)
HEENT: Normocephalic and Anicteric
Cardiovascular: S1-S2, Rub (negative) and Peripheral Edema (negative)
Respiratory: Wheeze (negative), Rhonchi (negative), Non-Labored Respirations, Stridor (negative) and Other (Coarse breath sounds heard bilaterally)
GI: Soft, Non Distended, Non Tender and Normal Bowel Sounds
Neurology: Awake, Alert, Oriented and Tremors (negative)
Skin: Warm, Dry, Cyanosis (negative) and Jaundice (negative)
Labs/Micro/Reports
Lab Data
03/19/25 04:17
03/19/25 04:17
Microbiology
03/18/25 12:25 Nasalpharynx Bordetella pertussis DNA (PCR) - Final
Not Detected
03/18/25 12:25 Nasalpharynx Bordetella paraper/bronchiseptica - Final
Not Detected
03/18/25 12:25 Nasalpharynx Bordetella holmesii - Final
Not Detected
[2025-03-19] MEDS: LIPITOR 20 MG PO (19:29)
[2025-03-19] MEDS: FLOMAX 0.4 MG PO (20:51)
[2025-03-19] MEDS: NEURONTIN 300 MG PO (20:51)
[2025-03-19] MEDS: NON-FORMULARY ITEM 400 MG PO (20:51)
[2025-03-19] MEDS: TYLENOL 650 MG PO (21:11)
[2025-03-20] VITALS (15 sets, daily range): BP systolic 81–118; BP diastolic 54–87; PULSE 100–103; O2SAT 96; BMI 19.7
[2025-03-20] MEDS: NSS 1000 IV ×2 (02:25→08:38)
--- NOTE | 2025-03-20 03:22 | PTCARENOTE ---
Assumed care for patient overnight. Pt AAOx3, pleasant. NSR-ST on the monitor. Received pt on 2L NC SpO2 97%. Pt ambulating to BSC w/ RW. CHG and delma care done. Pt dyspneic with exertion. Pt utilizing urinal independently. IVF cont. IV abx cont. Pt
has a moist non-productive cough. Pt requesting Tylenol for 'dull' low back pain, PRN Tylenol administered see SEP. Pt able to make needs known, call [facility] within reach.
[2025-03-20] MEDS: MYLICON 80 MG PO (04:59)
[2025-03-20] MEDS: SYNTHROID 50 MCG PO (05:00)
[2025-03-20] MEDS: ZOSYN 100 IV ×2 (05:00→12:40)
[2025-03-20 05:13] LABS: Hematocrit 22.9 % (39.0-52.0); Hemoglobin 7.7 g/dL (13.0-18.0); Mean Corp Hgb Conc. 33.6 g/dL (33.0-37.0); Mean Corpuscular Volume 95.0 fL (80.0-94.0); Nucleated Red Blood Cells % 0 % (-); Platelet Count 98 10^3/uL (130-400); Red Cell Dist. Width 17.5 % (11.5-14.5)
[2025-03-20 05:33] LABS: ALT (SGPT) 15 U/L (0-50); AST (SGOT) 16 U/L (17-59); Albumin 2.9 g/dl (3.5-5.0); Alkaline Phosphatase 38 U/L (38-126); Blood Urea Nitrogen 6 mg/dl (9-20); Calcium 7.9 mg/dl (8.4-10.2); Carbon Dioxide 27 mmol/L (22-30); Chloride 105 mmol/L (98-107); Estimated Creatinine Clearance 73 ml/min; Glucose 125 mg/dl (70-99); Potassium 3.4 mmol/L (3.5-5.1); Sodium 136 mmol/L (135-145); Total Protein 4.9 g/dl (6.3-8.2); eGFR > 60.00
[2025-03-20 07:26] LABS: Urine Character Clear (Clear)
[2025-03-20] MEDS: NON-FORMULARY ITEM 2 UNIT INH (07:37)
[2025-03-20 07:50] LABS: Urine Squamous Cell 0-2 /LPF (Few); Urine Urothelial Cell 0-2 /LPF (FEW)
--- NOTE | 2025-03-20 08:20 | W.PN.HOSP.TC ---
Addendum entered and electronically signed by Mariana Bustamante MD, Resident 03/20/25 12:49:
Add steroids per pulm for suspected COPD exacerbation
Midodrine added for consistently lower systolic BP
Original Note:
Today's Communication/Plan
-
Continue zosyn and linezolid
downgrade to tele
Assessment / Plan
Assessment / Plan
IMPRESSION:
This is an 79-year-old male with significant past medical history of bladder cancer, lung cancer, multiple myeloma, COPD on 2 L of oxygen, CVA on Eliquis presenting to the hospital for cough and worsening chest pain found to have sepsis secondary to
pneumonia.
Imaging:
Chest x-ray 03/18/2025:
There are opacities throughout the right lung, most pronounced in the right upper lung which are suspicious for pneumonia. Recommend follow-up to ensure resolution.
Osteopenia with numerous compression deformities throughout the thoracolumbar spine with associated increased thoracic kyphosis.
Chest CT 03/18/2025:
1. No evidence of pulmonary embolism.
2. Extensive apical predominant emphysematous changes. There are numerous opacities within the right upper lobe which extends slightly into the superior right lower lobe. There is a 2.5 x 2.0 cm more nodular opacity in the medial right upper lobe.
Findings may represent pneumonia although follow-up is recommended for evaluation of possible malignancy. Additionally there is an 8 mm solid nodule within the apical left upper lobe for which short interval follow-up CT chest or possible head is
recommended for further evaluation.
3. Extensive compression deformities throughout the visualized thoracolumbar spine with diffuse osteopenia.
4. There is a likely lytic lesion within the right aspect of the T10 vertebral body. Differential includes multiple myeloma and osseous metastasis.
PLAN:
Sepsis secondary to pneumonia
Immunocompromise state
-- Tachycardic 124, increased respiratory rate 22, leukopenia (WBC 3.5), pneumonia on imaging
-- Received 30 cc/kg in the ER, started on Zosyn in ED, addition of linezolid (anaphylactic reaction to vancomycin)
-- COVID-negative, trop (-)
-- Blood cultures prelim (-) UA (-), legionella and strep pneumo (-)
-- chlamydia, c.psittaci, c.trachomatis, c. pneumoniae, m. pneumonia pending
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
-- IMU -> downgrade to tele
-- Appreciate pulmonary considering his significant COPD history, lung ca hx and CT findings
-- Request records from [place] regarding last ED visit
Immunocompromise state with history of multiple myeloma status post CAR-T cell therapy September 2024
CMV
Bladder cancer
Lung cancer s/p radiation
-- Continue acyclovir, maribavir, prednisone
-- Consider stress dose steroids if BP drops
Hypomagnesemia
-- Resolved
Hyponatremia
-- resolved
Chest pain
-- Pain description consistent with pleurisy, EKG sinus tach, trop (-)
Diarrhea/gas
--Simethicone
#Lung cancer diagnosed 1 to 1.5 years ago s/p radiation therapy - he gets chest CT every 3 months and states it is stable - repeat CT outpatient in 4-6 weeks
#Pancytopenia - in setting of chemo, cancer, dilution- blood consent in chart - no signs of active bleed - transfuse hg <7
#CVA -states he is on Eliquis 2.5 twice daily for prior stroke
#COPD baseline 2L O2 at home - continue trelegy
#BPH - continue finasteride and tamsulosin
#Prediabetes - metformin on hold in acute setting
#Hypothyroidism - continue levothyroxine
#Peripheral neuropathy - continue gabapentin
#Prior low EF 45% around 2015 after stem cell transplant - since recovered with normal EF for many years with last echo 1 month EF 50% - Follows with [facility] Dr. Baron Anne
#GERD - continue omeprazole
#Vitamin D deficiency -continue vitamin D
#Former smoker - 44 years, 2-3 packs per day, quite 2000
DVT - Eliquis 2.5 BID
Full Code - he stated 4 months ago he would have been DNR however has recently been diagnosed with pancreatic cancer and he wants to be there to help her if needed.
Anticipated Discharge: 24 - 48 hours
Subjective/Interval History
-
Date of Service: March 20, 2025
Continues to have cough and pleuritic chest pain. He feels overall weak and not much better than before he came in despite the antibiotics. He misses his bed at home. He also had some increased loose bowel movements overnight and some associated
abdominal cramping. He received some simethicone for gas. This morning he feels like it has decreased.
Objective Data
-
Labs:
Laboratory Results
03/20/25
04:50
WBC 2.7 L
Hgb 7.7 L
Hct 22.9 L
Plt Count 98 L
Sodium 136
Potassium 3.4 L
Chloride 105
Carbon Dioxide 27
BUN 6 L
Creatinine 0.6 L
Glucose 125 H
Calcium 7.9 L
Total Bilirubin 0.6
AST 16 L
ALT 15
Alkaline Phosphatase 38
Vital Signs:
Vital Signs
Temp Pulse Resp BP Pulse Ox
98.2 F 97 21 93/60 94
03/20/25 03:00 03/20/25 07:40 03/20/25 07:40 03/20/25 06:00 03/20/25 07:40
I&O
03/19/25 03/20/25 03/21/25
06:59 06:59 06:59
Intake Total 1100 / 1100
Output Total 1375 / 1375 1500 / 1500 400 / 400
Balance -1375 / -1375 -1500 / -1500 700 / 700
Review of Systems
-
History Source: Patient
Respiratory: Reports Cough, Trouble Breathing and Pleurisy
Abdomen/GI: Reports Diarrhea and Bloated
Skin: Reports No Symptoms
Neuro: Reports No Symptoms
Physical Exam
-
General: Appears Chronically Ill
Respiratory: Crackles (crackles in right lung sena. Coarse breath sounds bilaterally. )
Cardiac: Regular Rhythm and S1/S2
GI: Soft, Nontender, Nondistended and Normal Bowel Sounds
Musculoskeletal: No Edema and Other (In compression stockings )
Neuro: AO x 3
Psych: Calm
[2025-03-20] MEDS: ZOVIRAX 400 MG PO (08:38)
[2025-03-20] MEDS: SOLU-MEDROL PF 40 MG IV (08:38)
[2025-03-20] MEDS: ZYVOX 600 MG PO (08:39)
[2025-03-20] MEDS: ZOLOFT 25 MG PO (08:39)
[2025-03-20] MEDS: NON-FORMULARY ITEM 400 MG PO (08:39)
[2025-03-20] MEDS: ELIQUIS 2.5 MG PO (08:39)
[2025-03-20] MEDS: KCL 20 MEQ PO (08:39)
[2025-03-20] MEDS: PROSCAR 5 MG PO (08:39)
[2025-03-20] MEDS: PROTONIX 20 MG PO (08:39)
[2025-03-20] MEDS: DELTASONE PO (08:40)
--- NOTE | 2025-03-20 09:10 | W.PN.PUL3 ---
Today's Communication / Plan
-
Back to baseline O2 use at home, he feels his subjective SOB is not improved
He is on IV steroids, but this can be tapered back to his home dose given lack of symptom improvement
Check MRSA, can stop Zyvox--
PCT pending, can stop all abx if negative
Check proBNP to r/o CHF, no prior ECHO for review
His CT findings may indicate disease progression, but he would need to take CT and compare to prior at [facility]] and FU with his OP Pulm for next steps
Discharge planning per team otherwise
Assessment
-
79-year-old male with a past medical history of COPD on home oxygen, history of lymphoma, history of bladder cancer (2013+2024) s/p resection, history of ischemic CVA, TIA, history of multiple myeloma (2014) s/p IVIG + CAR-T therapy (09/2024) with
prior stem cell transplant failure (2015), left common carotid artery atherosclerosis, BPH, and peripheral neuropathy who presents with chest pain for 3 weeks. Patient is also had a chronic cough since January after he had bladder cancer surgery with
complications. He says that possibly a roommate was sick but he is not exactly sure. He is on Trelegy for COPD and his pulmonary doctor is through [facility] with Dr. Tim Yanes. Patient says that he was recently diagnosed with lung
cancer about 1-1.5 years ago and he has been treated with radiation therapy. He reports that he gets a CT chest every 3 months and that the lung cancer is stable with no signs of growth. He does use oxygen at home at 2 L/min nasal cannula with
sleep and as needed during the day. Has a POC that he uses on setting #2. He says that his cough has been worsening since it started in January, sometimes has clear phlegm being produced. Denies night sweats. Has a 10 pound weight loss in the last
2 months. Also has been eating/drinking less lately, and has been short of breath for the last few months. In the ER he was afebrile, tachycardic to 124, breathing at 20 breaths/min, hypotensive to 82/56, and saturating 90% on room air.
Saturations improved to 98% on 2 L/min nasal cannula. Initial labs pertinent for leukopenia to 3.5, Hb 9.1, platelet count 116, sodium 132, glucose 215, lactate 1.6, troponin negative at <0.012, and COVID-19 antigen negative. Blood cultures were
collected. Pertussis PCR was checked and was negative. CXR showed opacities in the right lung suspicious for pneumonia. CTA chest obtained showing no evidence of PE with extensive apical predominant emphysematous changes with numerous opacities
in the right upper lobe including a 2.5 x 2 cm nodular opacity in the medial right upper lobe. There is also a lytic lesion in the right aspect of the T10 vertebral body. Pt was given 1.75L NS 0.9% in ER and zosyn. He was admitted to the IMU and
pulmonary service now consulted given abnormal chest CT findings.
Impression:
#Suspected CAP
#Right apical lung cancer s/p XRT - monitored at [facility]] - most recent CT Chest 01/17/2025 at [facility]] showed stable right apical posttreatment changes
#Chronic cough (started in January 2025)
#Severe centrilobular/paraseptal emphysema due to COPD with acute exacerbation
#Pancytopenia
#Hyponatremia likely due to reduce PO intake
#Hypomagnesemia
Chronic conditions CAN PUSHER:
History of ischemic CVA in treated with Eliquis at the time
Hx of TIA
Hypothyroidism
History of vertebral fracture
Multiple myeloma (2014) s/p IVIG + CAR-T therapy (09/2024) with prior stem cell transplant failure (2015)
Peripheral neuropathy presumably from multiple myeloma
Left common carotid artery atherosclerosis
BPH
History of bladder cancer (2013 + 2024) s/p resection
Former tobacco smoker
Lymphoma (diagnosed 2003)
COPD on home O2 (uses 2L/min with sleep and prn during day)
Chronic hypoxic respiratory failure
Prediabetes with hyperglycemia
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
Immunocompromised state on chronic prednisone
Plan:
Currently 94% on 1L
Home O2 eval
Baseline use of 2L w/ exertion noted, he is near back to baseline
Patient has a 2.5 x 2 cm opacity in the right upper lobe, concerning for pneumonia although unable to rule out malignancy
Patient has Hx of right apical NSCLC diagnosed 1 - 1.5 years ago (per patient), gets followed through [facility] with CT Chest every 3 months and was told his cancer is stable
Most recent CT Chest 01/17/2025 at [facility]] images are not available for comparisons, I reviewed this with patient
Also has chronic diffuse small airway inflammation with scattered mucoid impaction in distal small airways with small airways disease
Recommend to empirically treat for pneumonia with repeat CT chest in approximately 4-6 weeks
W/o further information, can complete treatment for PNA
Placed on empiric Zosyn + Zyvox (allergy to vancomycin � anaphylaxis)
Check MRSA--if neg can stop Zyvox
Patient is on Trelegy as an outpatient � continue with Symbicort 160 mcg + Spiriva Respimat 2.5 mcg/act while hospitalized, with prn albuterol (not currently bronchospastic)
Instructed to rinse mouth after using Symbicory
Given that he continues to feel SOB, will raise steroids to solumedrol 40mg IV q12hr
He feels nothing has improved his SOB despite treatment and weaned O2 back to baseline
Instructed him to follow up with his tool crib attendant at [facility]] for further eval, could indicate disease progression
Continue trending serum sodium; continue NS 0.9%
Given that he is immunocompromised, continue with acyclovir, prednisone and Maribavir
Maintain SpO2 88-95% with supplemental O2 and wean down as tolerated; he is on chronic oxygen, usually as needed
Incentive spirometer encouraged q1hr while awake
- Replete electrolytes with K>4, Mg>2
- Trend H/H and transfuse if needed to keep Hb>7g/dL; keep plt>20k, unless there is concern for bleeding then keep plt>50k
- Maintain euglycemia with goal BG >100 and <180
- DVT ppx: Eliquis
Stable for transfer out of IMU to telemetry.
Pulmonary service will continue to follow along.
Patient follows with Dr. Tim Yanes at [place] for his COPD
Discharge planning per team, he wishes to go home
Data:
CTA Chest 03/18/2025:
1. No evidence of pulmonary embolism.
2. Extensive apical predominant emphysematous changes. There are numerous opacities within the right upper lobe which extends slightly into the superior right lower lobe. There is a 2.5 x 2.0 cm more nodular opacity in the medial right upper lobe.
Findings may represent pneumonia although follow-up is recommended for evaluation of possible malignancy. Additionally there is an 8 mm solid nodule within the apical left upper lobe for which short interval follow-up CT chest or possible head is
recommended for further evaluation.
3. Extensive compression deformities throughout the visualized thoracolumbar spine with diffuse osteopenia.
4. There is a likely lytic lesion within the right aspect of the T10 vertebral body. Differential includes multiple myeloma and osseous metastasis.
-----
Total time spent today was 50 minutes for this encounter. Time includes reviewing laboratory test/imaging results, reviewing pertinent medical records, obtaining and reviewing medical history, performing an appropriate exam, ordering medications,
tests and procedures. Time also includes documentation of this encounter, coordinating patient care and communicating with other healthcare professionals. Total time does not include separately billed tests performed on this date of service.
Subjective Data
-
Date of Service:
Date of Service: March 20, 2025
Chief Complaint: Pulmonary Follow Up
Subjective:
Remains on 2L, feels no subjective improvement since admission
Wants to go home
Objective Data
Data Reviewed
Vital Signs / I&O / Oxygen:
Vital Signs
Temp Pulse Resp BP Pulse Ox
98.2 F 97 21 93/60 94
03/20/25 07:09 03/20/25 07:40 03/20/25 07:40 03/20/25 06:00 03/20/25 07:40
Intake and Output
03/19/25 03/20/25 03/21/25
06:59 06:59 06:59
Intake Total 1100 / 1100
Output Total 1375 / 1375 1500 / 1500 400 / 400
Balance -1375 / -1375 -1500 / -1500 700 / 700
SaO2 94
Nasal Cannula flow liters per 1
minute
Physical Exam
General: Respiratory Distress (negative), Comfortable and Chills (negative)
HEENT: Normocephalic and Anicteric
Cardiovascular: S1-S2, Regular Rhythm, Rub (negative) and Peripheral Edema (negative)
Respiratory: Wheeze (negative), Crackles (minimally), Rhonchi (negative), Non-Labored Respirations, Stridor (negative) and Other (Coarse breath sounds heard bilaterally)
GI: Soft, Non Distended, Non Tender and Normal Bowel Sounds
Neurology: Awake, Alert, Oriented and Tremors (negative)
Skin: Warm, Dry, Cyanosis (negative) and Jaundice (negative)
Labs/Micro/Reports
Lab Data
03/20/25 04:50
03/20/25 04:50
Microbiology
03/20/25 06:56 Urine Legionella Urinary Antigen - Final
Negative for Legionella pneumophila Serogroup 1 antigen.
A negative result does not rule out the possiblity of
Legionella infection due to other serogroups or species of
Legionella. Clinical correlation is recommended.
03/20/25 06:56 Urine Streptococcus pneumoniae Antigen (M - Final
Negative for Streptococcus pneumoniae antigen.
A negative result does not exclude infection with
Streptococcus pneumoniae. Clinical correlation is
recommended.
03/18/25 20:56 Blood/Venous Blood Culture - Preliminary
No Growth in 24 hours- Final report to follow
03/18/25 20:46 Blood/Venous Blood Culture - Preliminary
No Growth in 24 hours- Final report to follow
03/18/25 12:25 Blood/Venous Blood Culture - Preliminary
No Growth in 24 hours- Final report to follow
03/18/25 12:25 Blood/Venous Blood Culture - Preliminary
No Growth in 24 hours- Final report to follow
03/18/25 12:25 Nasalpharynx Bordetella pertussis DNA (PCR) - Final
Not Detected
03/18/25 12:25 Nasalpharynx Bordetella paraper/bronchiseptica - Final
Not Detected
03/18/25 12:25 Nasalpharynx Bordetella holmesii - Final
Not Detected
--- NOTE | 2025-03-20 11:31 | W.PN.UPDATE ---
Addendum entered and electronically signed by Heriberto Nix MD 03/20/25 15:13:
Total time spent on d/c = 54 min. This included today's physical exam, progress note, review of laboratory and diagnostic data, preparation of discharge documents and prescriptions, and discussions about the pt's hospital course and discharge plan
with the patient and other medical practice manager involved in the patient's care.
Original Note:
Update Note
Progress Note Update
I saw and evaluated the patient. I reviewed the resident�s note and agree with findings and plan as documented in the resident�s note.
No new complaints. Patient states he feels unchanged from yesterday. Still with cough productive of sputum.
Gen: NAD, AAOx3, appears chronically ill and malnourished.
Eyes: EOMI, PERRLA, no scleral icterus.
Neck: supple.
CV: remains RRR, +S1/S2, no m/r/g.
Resp: Decreased breath sounds in the right base
Abd: +BS, soft, NT, ND
Skin: No rashes.
Neuro: remains CN 2-12 intact, non-focal.
Psych: Normal mood and affect.
03/20/25 06:56 Urine Legionella Urinary Antigen - Final
Negative for Legionella pneumophila Serogroup 1 antigen.
A negative result does not rule out the possiblity of
Legionella infection due to other serogroups or species of
Legionella. Clinical correlation is recommended.
03/20/25 06:56 Urine Streptococcus pneumoniae Antigen (M - Final
Negative for Streptococcus pneumoniae antigen.
A negative result does not exclude infection with
Streptococcus pneumoniae. Clinical correlation is
recommended.
03/18/25 20:56 Blood/Venous Blood Culture - Preliminary
No Growth in 24 hours- Final report to follow
03/18/25 20:46 Blood/Venous Blood Culture - Preliminary
No Growth in 24 hours- Final report to follow
03/18/25 12:25 Blood/Venous Blood Culture - Preliminary
No Growth in 24 hours- Final report to follow
03/18/25 12:25 Blood/Venous Blood Culture - Preliminary
No Growth in 24 hours- Final report to follow
03/18/25 12:25 Nasalpharynx Bordetella pertussis DNA (PCR) - Final
Not Detected
03/18/25 12:25 Nasalpharynx Bordetella paraper/bronchiseptica - Final
Not Detected
03/18/25 12:25 Nasalpharynx Bordetella holmesii - Final
Not Detected
CT chest:
1. No evidence of pulmonary embolism.
2. Extensive apical predominant emphysematous changes. There are numerous opacities within the right upper lobe which extends slightly into the superior right lower lobe. There is a 2.5 x 2.0 cm more nodular opacity in the medial right upper lobe.
Findings may represent pneumonia although follow-up is recommended for evaluation of possible malignancy. Additionally there is an 8 mm solid nodule within the apical left upper lobe for which short interval follow-up CT chest or possible head is
recommended for further evaluation.
3. Extensive compression deformities throughout the visualized thoracolumbar spine with diffuse osteopenia.
4. There is a likely lytic lesion within the right aspect of the T10 vertebral body. Differential includes multiple myeloma and osseous metastasis.
Sepsis, POA, due to R-sided PNA:
-CT chest images reviewed by myself, treat as PNA at this moment (despite subacute onset)
-sepsis, POA, a/e/b tachypnea, tachycardia, WBC 3.5, source PNA
-Immunocompromised state with history of multiple myeloma s/p CAR T-cell therapy September 2024
-h/o lung CA
-COVID NEG
-cont Zosyn/Zyvox, check MRSA screen
-follow BCxs (NGTD)
-Urinary strep and Legionella antigens negative
-s/p 30cc/kg bolus in ER
-states SBP usually on the lower end, 100-110s, also states recent EF 50%
-stop maintenance IVFs, start midodrine 2.5mg TID
-pulm following
-continue acyclovir/prednisone/Maribavir
Acute COPD exac:
-with chronic hypoxemic respiratory failure on 2L NC O2
-cont IV Solu-Medrol
-cont Trelegy
Other problems:
Pancytopenia: counts currently stable
h/o CVA on Eliquis [employer] (as per pt 2.5mg BID)
Hyponatremia, mild
Multiple myeloma s/p CAR T-cell therapy September 2024
Hypothyroidism: Continue Levoxyl
Prediabetic, hold Metformin for now
FULL/Eliquis
[2025-03-20] MEDS: TYLENOL 650 MG PO (12:39)
[2025-03-20 13:06] LABS: Procalcitonin < 0.05 ng/ml (0.0-0.25)
--- NOTE | 2025-03-20 15:12 | W.PN.UPDATE ---
Update Note
Progress Note Update
Case discussed with Dr. Rodriguez. As procalcitonin is negative bacterial pneumonia has been ruled out. Dr. Rodriguez recommends discharge on a prednisone taper back to his home dose.
--- NOTE | 2025-03-20 15:47 | CM ---
Following up on Patient.
Patient is be discharge today, patient has transportation, said he will not need his oxygen to get home, and IMM completed.
PLAN: Home no needs.
--- NOTE | 2025-03-20 15:52 | W.DCSUMMARY ---
Discharge Summary
Discharge Data
Date of Admission: 03/18/25
Date of Discharge: 03/20/25
-
Pending Results: Yes
Additional Pending Results:
MRSA screen
Chlamydia panel
M. pneumoniae panel
Hospital Course
Primary diagnosis:
Sepsis secondary to pneumonia vs Acute COPD exacerbation vs malignancy
Immunocompromise state with history of lung cancer, multiple myeloma, CMV, bladder cancer
Hyponatremia
Hypomagnesemia
Secondary diagnosis:
Pancytopenia
History of CVA
Multiple myeloma
Hypothyroidism
Prediabetes
79-year-old male with past medical history significant for bladder cancer, lung cancer s/p radiation 2023, multiple myeloma, CVA for which he is on Eliquis, COPD on 2 L of oxygen at home presents to the hospital for cough and worsening chest pain.
It had been ongoing since the 06 of January after hospitalization at [facility] for complications after bladder resection surgery but increased in the last few days which prompted him to come in for evaluation. He was seen at [place] [facility] 2-3 weeks ago
but he stated work up including chest imaging was negative. In the ER, he was hypotensive with blood pressure 82/56, tachycardic with heart rate 124, tachypneic with respiratory rate 22, afebrile satting well on his baseline 2 L of oxygen. WBC was
3.5, lactic acid 1.6, troponins were negative, covid (-), and EKG showed sinus tachycardia but no ischemia. Chest x-ray revealed right lung opacity suggestive of pneumonia. Subsequent chest CT revealed emphysematous changes with opacities in the
right upper and lower lung concerning for infection versus malignancy. Blood cultures were taken, he was provided adequate fluid resuscitation, started on Zosyn and linezolid (due to anaphylactic allergic reaction to vancomycin), and admitted to
[facility] for sepsis secondary to pneumonia. Pulmonology was consulted for imaging findings and agreed with plan adding additional microbial testing. On 03/18, pulmonology added IV steroids for possible COPD exacerbation as patient's symptoms were not
improving despite antibiotics and fluids. On 03/19, the patient's prelim blood cultures came back (-), and pro-jaclyn was also (-) (<0.05) which helped decrease likelihood of bacterial pneumonia.
Today, as cultures have been negative and pulmonology believes this is symptoms more related to his chronic conditions and possible COPD exacerbation, the patient is stable for discharge on a 15 day prednisone taper. Please re-start baseline 5mg
prednisone after taper is done 04/05/25. Midodrine 2.5 TID was also added as patient stated his baseline BP is low and in the hospital is was regularly between 90s/60s. He was not discharged on antibiotics as pro-calcitonin was negative meaning if
there was an infection it is highly improbably it is bacterial in nature.
03/18/25 12:25 Blood Culture - Preliminary
Blood/Venous No Growth in 48 hours- Final report to follow
03/18/25 12:25 Blood Culture - Preliminary
Blood/Venous No Growth in 48 hours- Final report to follow
03/20/25 06:56 Legionella Urinary Antigen - Final
Urine Negative for Legionella pneumophila Serogroup 1 antigen.
A negative result does not rule out the possiblity of
Legionella infection due to other serogroups or species of
Legionella. Clinical correlation is recommended.
03/20/25 06:56 Streptococcus pneumoniae Antigen (M - Final
Urine Negative for Streptococcus pneumoniae antigen.
A negative result does not exclude infection with
Streptococcus pneumoniae. Clinical correlation is
recommended.
03/18/25 20:56 Blood Culture - Preliminary
Blood/Venous No Growth in 24 hours- Final report to follow
03/18/25 20:46 Blood Culture - Preliminary
Blood/Venous No Growth in 24 hours- Final report to follow
03/18/25 12:25 Bordetella pertussis DNA (PCR) - Final
Nasalpharynx Not Detected
Bordetella paraper/bronchiseptica - Final
Not Detected
Bordetella holmesii - Final
Not Detected
Imaging:
Chest x-ray 03/18/2025:
There are opacities throughout the right lung, most pronounced in the right upper lung which are suspicious for pneumonia. Recommend follow-up to ensure resolution.
Osteopenia with numerous compression deformities throughout the thoracolumbar spine with associated increased thoracic kyphosis.
Chest CT 03/18/2025:
1. No evidence of pulmonary embolism.
2. Extensive apical predominant emphysematous changes. There are numerous opacities within the right upper lobe which extends slightly into the superior right lower lobe. There is a 2.5 x 2.0 cm more nodular opacity in the medial right upper lobe.
Findings may represent pneumonia although follow-up is recommended for evaluation of possible malignancy. Additionally there is an 8 mm solid nodule within the apical left upper lobe for which short interval follow-up CT chest or possible head is
recommended for further evaluation.
3. Extensive compression deformities throughout the visualized thoracolumbar spine with diffuse osteopenia.
4. There is a likely lytic lesion within the right aspect of the T10 vertebral body. Differential includes multiple myeloma and osseous metastasis.
Discharge Plan
-
Patient Disposition: Home with Home Care
Discharge Diagnosis/Procedures: Sepsis secondary to pneumonia (nonbacterial)
Immunocompromised state with history of multiple myeloma, bladder cancer, lung cancer, cytomegalovirus
Chronic obstructive pulmonary disease exacerbation
Hypomagnesemia
Hyponatremia
Condition: Fair
Diet: Low Cholesterol
Activity: As tolerated
Driving Restrictions: No driving
Bathing Restrictions: None
Other Services: VN, PT and OT
Referrals:
Garrick Kline, [Family Provider, Internal Medicine] - in less than 1 week
Additional Discharge Medication Instructions: Start prednisone taper tomorrow. After completing prednisone taper, please go back to 5 mg prednisone daily (April 05)
Please follow up with your knitting machine fixer Dr. Yanes and and Oncologist.
Prescriptions:
New
midodrine 2.5 mg Tablet
2.5 mg PO TID@0800,1300,1800 Qty: 60 0RF
prednisone 10 mg Tablet
See Rx Instructions .ROUTE .COMPLEX Qty: 45 0RF
Rx Instructions:
Take By Mouth:
50 mg daily x3 days, 40 mg daily x3 days,
30 mg daily x3 days, 20 mg daily x3 days,
10 mg daily x3 days
Continued
tamsulosin 0.4 MG capsule
0.4 mg PO HS
levothyroxine 50 MCG tablet
50 mcg PO DAILY
gabapentin 300 MG capsule
300 mg PO HS
omeprazole 20 MG capsule,delayed release(DR/EC)
20 mg PO DAILY
metformin 500 MG tablet extended release 24 hr
500 mg PO BID
cholecalciferol (vitamin D3) 1,000 UNITS tablet
1,000 units PO DAILY
multivitamin with folic acid [Tab-A-Kiarra] 1 TABLET tablet
1 tab PO DAILY
acetaminophen [Tylenol] 325 mg Tablet
650 mg PO Q6HPRN PRN (Reason: mild pain)
atorvastatin [Lipitor] 20 mg Tablet
20 mg PO QPM
acyclovir 400 mg Tablet
400 mg PO DAILY
sertraline 25 mg Tablet
25 mg PO DAILY
finasteride 5 mg Tablet
5 mg PO DAILY
Eliquis 2.5 mg Tablet
2.5 mg PO BID
Livtencity 200 mg Tablet
400 mg PO BID
Medical Marijuana
2 ml PO HS
Trelegy Ellipta 200-62.5-25 mcg Blister With Device
1 inh INHALATION R DAILY
Held
prednisone 5 mg Tablet
5 mg PO DAILY
Hold Instructions: Please hold and restart after you finish your prednisone taper (04/05/2025)
Discharge Orders:
Discharge Patient (As Directed); Ordered 03/20/25
Ordered By: Heriberto Nix
Discharge Date and Time
Print Language: DIVEHI
--- NOTE | 2025-03-20 16:11 | PTCARENOTE ---
Rec'd pt this AM. vital signs stable throughout the shift. Pt for d.c. this afternoon.
[2025-03-21 14:08] LABS: Mycoplasma pneumoniae-IgM 0.00 U/L (<=0.76)
[2025-03-23 05:33] LABS: Chlamydia Pneumoniae, IgM <1:20 (<1:20); Chlamydia Psittaci, IgM <1:20 (<1:20); Chlamydia Trachomatis, IgM <1:20 (<1:20)
== END 2025-03-20 17:30 | disposition home or self-care (01) | DRG 871 ==
LOC: IMU 15:27
PROVIDERS: Internal Medicine; ADMITTING PHYSICIAN Internal Medicine; CONSULT PHYSICIAN Internal Medicine Critical Care Medicine; EMERGENCY PHYSICIAN Emergency Medicine; FAMILY PHYSICIAN Internal Medicine
DX: A41.9 Sepsis, unspecified organism (principal); J18.9 Pneumonia, unspecified organism; J44.1 Chronic obstructive pulmonary disease with (acute) exacerbation; C90.01 Multiple myeloma in remission; E87.1 Hypo-osmolality and hyponatremia; D61.818 Other pancytopenia; C85.9A Non-Hodgkin lymphoma, unspecified, in remission; D84.9 Immunodeficiency, unspecified; J96.11 Chronic respiratory failure with hypoxia; Z94.84 Stem cells transplant status; J44.0 Chronic obstructive pulmonary disease with (acute) lower respiratory infection; Z85.51 Personal history of malignant neoplasm of bladder; Z85.118 Personal history of other malignant neoplasm of bronchus and lung; E83.42 Hypomagnesemia; Z86.73 Personal history of transient ischemic attack (TIA), and cerebral infarction without residual deficits; E03.9 Hypothyroidism, unspecified; R73.03 Prediabetes; N40.1 Benign prostatic hyperplasia with lower urinary tract symptoms; R73.9 Hyperglycemia, unspecified; Z79.01 Long term (current) use of anticoagulants; R32 Unspecified urinary incontinence; Z85.820 Personal history of malignant melanoma of skin; G62.9 Polyneuropathy, unspecified; K21.9 Gastro-esophageal reflux disease without esophagitis; Z87.81 Personal history of (healed) traumatic fracture; Z87.891 Personal history of nicotine dependence; Z88.1 Allergy status to other antibiotic agents; Z88.5 Allergy status to narcotic agent; T36.8X5A Adverse effect of other systemic antibiotics, initial encounter; Z79.890 Hormone replacement therapy; Z79.52 Long term (current) use of systemic steroids; Z79.84 Long term (current) use of oral hypoglycemic drugs; Z92.3 Personal history of irradiation; Z86.718 Personal history of other venous thrombosis and embolism; J43.8 Other emphysema; Z82.49 Family history of ischemic heart disease and other diseases of the circulatory system; Z98.41 Cataract extraction status, right eye; Z98.42 Cataract extraction status, left eye; Z99.81 Dependence on supplemental oxygen; Z79.899 Other long term (current) drug therapy; Z11.52 Encounter for screening for COVID-19
CPT/HCPCS: 71046; 71275; 80053; 81003; 81015; 83605; 83735; 83880; 84145; 84484; 85025; 86632; 86738; 86850; 86900; 86901; 87040; 87070; 87449; 87798; 87811; 87899; 93005; 94640; 96361; 96365; 97162; 97166; 99291; Q9967